=== PATIENT | male | born 1960 | race Caucasian/White ===

== ENCOUNTER 2023-12-30 19:52 | Emergency (ER) | payer BC ==
--- OUTSIDE RECORDS SUMMARY | 2023-12-30 19:55 | XMS REPORT | Continuity of Care Document ---
Author Name Unknown Address [address] [facility] [address] [place] [address] [email or web address] Address [address] [facility] [address] [place] [address] Care Team Providers Care Social Human Services Assistants Name Role Phone Gaudencio Kate Attending Clinician Unavailable Morris Attending Clinician Unavail able Gaudencio Kate Attending Clinician [phone] Gaudencio Kate Admitting Clinician Unavailable Morris Admitting Clinician Unavail able Payers Payer Name Policy Type Policy Number Effective Date Expirati on Date Source [place] [id number] 2017 00:00:00 Problems Condition Name Condition Details Condition Category Status Onset Date Resolution Date Last Treatment Date Treating Clinician Comments Source History of left hip replacemen t History of Left Hip Replacemen t Problem Active - 00:00: 00 [facility] 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 Problem Active -12 00:00: 00 [facility] Joint pain Joint Pain Problem Active 1-06 00:00: 00 [facility] Osteoarthr itis of left hip joint Osteoarthr itis of Left Hip Joint Problem Active 5- 00:00: 00 [facility] Osteoarthr itis of hip Osteoarthr itis of Hip Problem Active 3- 00:00: 00 [facility] 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 Problem Active 3- 00:00: 00 [facility] Pain of left hip joint Pain of Left Hip Joint Problem Active 3- 00:00: 00 [facility] Allergies, Adverse Reactions, Alerts Allergy Name Allergy Type Status Severity Reaction(s) Onset Date Inactive Date Treating Clinician Comments Source No Known Drug Allergie s DA Active U 04-23 00:00: 00 [facility] No Known Drug Allergie s DA Active 5- 00:00: 00 [facility] No Known Allergie s DA Active U - 00:00: 00 [facility] Social History Smoking Status Start Date Stop Date Source Never Smoker [facility] Medications Ordered Medication Name Filled Medication Name Start Date Stop Date Current Medication? Ordering Clinician Indication Dosage Frequency Signature (SIG) Comments Components Source albuterol sulfate HFA 90 mcg/actuati on aerosol inhaler INHALE 1 PUFF BY MOUTH EVERY 4 HOURS NEEDED FOR COUGH albuterol sulfate HFA 90 mcg/actuati on aerosol inhaler INHALE 1 PUFF BY MOUTH EVERY 4 HOURS NEEDED FOR COUGH No albuterol sulfate HFA 90 mcg/actuat ion aerosol inhaler INHALE 1 PUFF BY MOUTH EVERY 4 HOURS NEEDED FOR COUGH [facility] amoxicillin 875 mg-potassiu m clavulanate 125 mg tablet TAKE 1 TABLET BY MOUTH TWICE DAILY FOR 10 DAYS amoxicillin 875 mg-potassiu m clavulanate 125 mg tablet TAKE 1 TABLET BY MOUTH TWICE DAILY FOR 10 DAYS No amoxicilli n 875 mg-potassi um clavulanat e 125 mg tablet TAKE 1 TABLET BY MOUTH TWICE DAILY FOR 10 DAYS [facility] aspirin 81 mg tablet,humberto yed release aspirin 81 mg tablet,humberto yed release No aspirin 81 mg tablet,del ayed release [facility] benzonatate 200 mg capsule TAKE 1 CAPSULE BY MOUTH THREE TIMES DAILY NEEDED FOR COUGH benzonatate 200 mg capsule TAKE 1 CAPSULE BY MOUTH THREE TIMES DAILY NEEDED FOR COUGH No benzonatat e 200 mg capsule TAKE 1 CAPSULE BY MOUTH THREE TIMES DAILY NEEDED FOR COUGH [facility] doxycycline hyclate 100 mg capsule TAKE 1 CAPSULE BY MOUTH TWICE DAILY doxycycline hyclate 100 mg capsule TAKE 1 CAPSULE BY MOUTH TWICE DAILY No doxycyclin e hyclate 100 mg capsule TAKE 1 CAPSULE BY MOUTH TWICE DAILY [facility] hydrocodone 10 mg-acetamin ophen 325 mg tablet TAKE 1 TABLET BY MOUTH EVERY 6 HOURS NEEDED FOR BREAKTHROUG H PAIN hydrocodone 10 mg-acetamin ophen 325 mg tablet TAKE 1 TABLET BY MOUTH EVERY 6 HOURS NEEDED FOR BREAKTHROUG H PAIN No hydrocodon e 10 mg-acetami nophen 325 mg tablet TAKE 1 TABLET BY MOUTH EVERY 6 HOURS NEEDED FOR BREAKTHROU GH PAIN [facility] meloxicam 15 mg tablet TAKE 1 TABLET BY MOUTH DAILY meloxicam 15 mg tablet TAKE 1 TABLET BY MOUTH DAILY No meloxicam 15 mg tablet TAKE 1 TABLET BY MOUTH DAILY [facility] methocarbam ol 500 mg tablet TAKE 1 TABLET BY MOUTH THREE TIMES DAILY NEEDED FOR MUSCLE SPASM methocarbam ol 500 mg tablet TAKE 1 TABLET BY MOUTH THREE TIMES DAILY NEEDED FOR MUSCLE SPASM No methocarba mol 500 mg tablet TAKE 1 TABLET BY MOUTH THREE TIMES DAILY NEEDED FOR MUSCLE SPASM [facility] methylpredn isolone 4 mg tablets in a dose pack FOLLOW PACKAGE DIRECTIONS methylpredn isolone 4 mg tablets in a dose pack FOLLOW PACKAGE DIRECTIONS No methylpred nisolone 4 mg tablets in a dose pack FOLLOW PACKAGE DIRECTIONS [facility] polyethylen e glycol 3350 17 gram oral powder packet polyethylen e glycol 3350 17 gram oral powder packet No polyethyle ne glycol 3350 17 gram oral powder packet [facility] promethazin e-DM 6.25 mg-15 mg/5 mL oral syrup TAKE 5 ML BY MOUTH EVERY 6 HOURS NEEDED FOR COUGH promethazin e-DM 6.25 mg-15 mg/5 mL oral syrup TAKE 5 ML BY MOUTH EVERY 6 HOURS NEEDED FOR COUGH No promethazi ne-DM 6.25 mg-15 mg/5 mL oral syrup TAKE 5 ML BY MOUTH EVERY 6 HOURS NEEDED FOR COUGH [facility] tramadol 50 mg tablet TAKE 1 TABLET BY MOUTH EVERY 4 HOURS NEEDED FOR PAIN tramadol 50 mg tablet TAKE 1 TABLET BY MOUTH EVERY 4 HOURS NEEDED FOR PAIN No tramadol 50 mg tablet TAKE 1 TABLET BY MOUTH EVERY 4 HOURS NEEDED FOR PAIN [facility] albuterol sulfate HFA 90 mcg/actuati on aerosol inhaler INHALE 1 PUFF BY MOUTH EVERY 4 HOURS NEEDED FOR COUGH albuterol sulfate HFA 90 mcg/actuati on aerosol inhaler INHALE 1 PUFF BY MOUTH EVERY 4 HOURS NEEDED FOR COUGH No albuterol sulfate HFA 90 mcg/actuat ion aerosol inhaler INHALE 1 PUFF BY MOUTH EVERY 4 HOURS NEEDED FOR COUGH [facility] amoxicillin 875 mg-potassiu m clavulanate 125 mg tablet TAKE 1 TABLET BY MOUTH TWICE DAILY FOR 10 DAYS amoxicillin 875 mg-potassiu m clavulanate 125 mg tablet TAKE 1 TABLET BY MOUTH TWICE DAILY FOR 10 DAYS No amoxicilli n 875 mg-potassi um clavulanat e 125 mg tablet TAKE 1 TABLET BY MOUTH TWICE DAILY FOR 10 DAYS [facility] aspirin 81 mg tablet,humberto yed release aspirin 81 mg tablet,humberto yed release No aspirin 81 mg tablet,del ayed release [facility] benzonatate 200 mg capsule TAKE 1 CAPSULE BY MOUTH THREE TIMES DAILY NEEDED FOR COUGH benzonatate 200 mg capsule TAKE 1 CAPSULE BY MOUTH THREE TIMES DAILY NEEDED FOR COUGH No benzonatat e 200 mg capsule TAKE 1 CAPSULE BY MOUTH THREE TIMES DAILY NEEDED FOR COUGH [facility] cephalexin 500 mg capsule TAKE 1 TABLET BY MOUTH THREE TIMES DAILY FOR 10 DAYS cephalexin 500 mg capsule TAKE 1 TABLET BY MOUTH THREE TIMES DAILY FOR 10 DAYS No cephalexin 500 mg capsule TAKE 1 TABLET BY MOUTH THREE TIMES DAILY FOR 10 DAYS [facility] doxycycline hyclate 100 mg capsule TAKE 1 CAPSULE BY MOUTH TWICE DAILY doxycycline hyclate 100 mg capsule TAKE 1 CAPSULE BY MOUTH TWICE DAILY No doxycyclin e hyclate 100 mg capsule TAKE 1 CAPSULE BY MOUTH TWICE DAILY [facility] hydrocodone 10 mg-acetamin ophen 325 mg tablet TAKE 1 TABLET BY MOUTH EVERY 6 HOURS NEEDED FOR BREAKTHROUG H PAIN hydrocodone 10 mg-acetamin ophen 325 mg tablet TAKE 1 TABLET BY MOUTH EVERY 6 HOURS NEEDED FOR BREAKTHROUG H PAIN No hydrocodon e 10 mg-acetami nophen 325 mg tablet TAKE 1 TABLET BY MOUTH EVERY 6 HOURS NEEDED FOR BREAKTHROU GH PAIN [facility] meloxicam 15 mg tablet TAKE 1 TABLET BY MOUTH DAILY meloxicam 15 mg tablet TAKE 1 TABLET BY MOUTH DAILY No meloxicam 15 mg tablet TAKE 1 TABLET BY MOUTH DAILY [facility] methocarbam ol 500 mg tablet TAKE 1 TABLET BY MOUTH THREE TIMES DAILY NEEDED FOR MUSCLE SPASM methocarbam ol 500 mg tablet TAKE 1 TABLET BY MOUTH THREE TIMES DAILY NEEDED FOR MUSCLE SPASM No methocarba mol 500 mg tablet TAKE 1 TABLET BY MOUTH THREE TIMES DAILY NEEDED FOR MUSCLE SPASM [facility] methylpredn isolone 4 mg tablets in a dose pack FOLLOW PACKAGE DIRECTIONS methylpredn isolone 4 mg tablets in a dose pack FOLLOW PACKAGE DIRECTIONS No methylpred nisolone 4 mg tablets in a dose pack FOLLOW PACKAGE DIRECTIONS [facility] polyethylen e glycol 3350 17 gram oral powder packet polyethylen e glycol 3350 17 gram oral powder packet No polyethyle ne glycol 3350 17 gram oral powder packet [facility] promethazin e-DM 6.25 mg-15 mg/5 mL oral syrup TAKE 5 ML BY MOUTH EVERY 6 HOURS NEEDED FOR COUGH promethazin e-DM 6.25 mg-15 mg/5 mL oral syrup TAKE 5 ML BY MOUTH EVERY 6 HOURS NEEDED FOR COUGH No promethazi ne-DM 6.25 mg-15 mg/5 mL oral syrup TAKE 5 ML BY MOUTH EVERY 6 HOURS NEEDED FOR COUGH [facility] tramadol 50 mg tablet TAKE 1 TABLET BY MOUTH EVERY 4 HOURS NEEDED FOR PAIN tramadol 50 mg tablet TAKE 1 TABLET BY MOUTH EVERY 4 HOURS NEEDED FOR PAIN No tramadol 50 mg tablet TAKE 1 TABLET BY MOUTH EVERY 4 HOURS NEEDED FOR PAIN [facility] albuterol sulfate HFA 90 mcg/actuati on aerosol inhaler INHALE 1 PUFF BY MOUTH EVERY 4 HOURS NEEDED FOR COUGH albuterol sulfate HFA 90 mcg/actuati on aerosol inhaler INHALE 1 PUFF BY MOUTH EVERY 4 HOURS NEEDED FOR COUGH No albuterol sulfate HFA 90 mcg/actuat ion aerosol inhaler INHALE 1 PUFF BY MOUTH EVERY 4 HOURS NEEDED FOR COUGH [facility] amoxicillin 875 mg-potassiu m clavulanate 125 mg tablet TAKE 1 TABLET BY MOUTH TWICE DAILY FOR 10 DAYS amoxicillin 875 mg-potassiu m clavulanate 125 mg tablet TAKE 1 TABLET BY MOUTH TWICE DAILY FOR 10 DAYS No amoxicilli n 875 mg-potassi um clavulanat e 125 mg tablet TAKE 1 TABLET BY MOUTH TWICE DAILY FOR 10 DAYS [facility] aspirin 81 mg tablet,humberto yed release TAKE 1 TABLET BY MOUTH TWICE DAILY WITH MEALS aspirin 81 mg tablet,humberto yed release TAKE 1 TABLET BY MOUTH TWICE DAILY WITH MEALS No aspirin 81 mg tablet,del ayed release TAKE 1 TABLET BY MOUTH TWICE DAILY WITH MEALS [facility] benzonatate 200 mg capsule TAKE 1 CAPSULE BY MOUTH THREE TIMES DAILY NEEDED FOR COUGH benzonatate 200 mg capsule TAKE 1 CAPSULE BY MOUTH THREE TIMES DAILY NEEDED FOR COUGH No benzonatat e 200 mg capsule TAKE 1 CAPSULE BY MOUTH THREE TIMES DAILY NEEDED FOR COUGH [facility] ceftriaxone 2 gram solution for injection ceftriaxone 2 gram solution for injection No ceftriaxon e 2 gram solution for injection [facility] cephalexin 500 mg capsule TAKE 1 TABLET BY MOUTH THREE TIMES DAILY FOR 10 DAYS cephalexin 500 mg capsule TAKE 1 TABLET BY MOUTH THREE TIMES DAILY FOR 10 DAYS No cephalexin 500 mg capsule TAKE 1 TABLET BY MOUTH THREE TIMES DAILY FOR 10 DAYS [facility] doxycycline hyclate 100 mg capsule TAKE 1 CAPSULE BY MOUTH TWICE DAILY doxycycline hyclate 100 mg capsule TAKE 1 CAPSULE BY MOUTH TWICE DAILY No doxycyclin e hyclate 100 mg capsule TAKE 1 CAPSULE BY MOUTH TWICE DAILY [facility] hydrocodone 10 mg-acetamin ophen 325 mg tablet TAKE 1 TABLET BY MOUTH EVERY 6 HOURS NEEDED FOR BREAKTHROUG H PAIN hydrocodone 10 mg-acetamin ophen 325 mg tablet TAKE 1 TABLET BY MOUTH EVERY 6 HOURS NEEDED FOR BREAKTHROUG H PAIN No hydrocodon e 10 mg-acetami nophen 325 mg tablet TAKE 1 TABLET BY MOUTH EVERY 6 HOURS NEEDED FOR BREAKTHROU GH PAIN [facility] meloxicam 15 mg tablet TAKE 1 TABLET BY MOUTH DAILY meloxicam 15 mg tablet TAKE 1 TABLET BY MOUTH DAILY No meloxicam 15 mg tablet TAKE 1 TABLET BY MOUTH DAILY [facility] methocarbam ol 500 mg tablet TAKE 1 TABLET BY MOUTH THREE TIMES DAILY NEEDED FOR MUSCLE SPASM methocarbam ol 500 mg tablet TAKE 1 TABLET BY MOUTH THREE TIMES DAILY NEEDED FOR MUSCLE SPASM No methocarba mol 500 mg tablet TAKE 1 TABLET BY MOUTH THREE TIMES DAILY NEEDED FOR MUSCLE SPASM [facility] methylpredn isolone 4 mg tablets in a dose pack FOLLOW PACKAGE DIRECTIONS methylpredn isolone 4 mg tablets in a dose pack FOLLOW PACKAGE DIRECTIONS No methylpred nisolone 4 mg tablets in a dose pack FOLLOW PACKAGE DIRECTIONS [facility] polyethylen e glycol 3350 17 gram oral powder packet MIX 1 PACKET IN WATER OR JUICE AT BEDTIME DAILY FOR CONSTIPATIO N PREVENTION polyethylen e glycol 3350 17 gram oral powder packet MIX 1 PACKET IN WATER OR JUICE AT BEDTIME DAILY FOR CONSTIPATIO N PREVENTION No polyethyle ne glycol 3350 17 gram oral powder packet MIX 1 PACKET IN WATER OR JUICE AT BEDTIME DAILY FOR CONSTIPATI ON PREVENTION [facility] promethazin e-DM 6.25 mg-15 mg/5 mL oral syrup TAKE 5 ML BY MOUTH EVERY 6 HOURS NEEDED FOR COUGH promethazin e-DM 6.25 mg-15 mg/5 mL oral syrup TAKE 5 ML BY MOUTH EVERY 6 HOURS NEEDED FOR COUGH No promethazi ne-DM 6.25 mg-15 mg/5 mL oral syrup TAKE 5 ML BY MOUTH EVERY 6 HOURS NEEDED FOR COUGH [facility] tramadol 50 mg tablet TAKE 1 TABLET BY MOUTH EVERY 4 HOURS NEEDED FOR PAIN tramadol 50 mg tablet TAKE 1 TABLET BY MOUTH EVERY 4 HOURS NEEDED FOR PAIN No tramadol 50 mg tablet TAKE 1 TABLET BY MOUTH EVERY 4 HOURS NEEDED FOR PAIN [facility] albuterol sulfate HFA 90 mcg/actuati on aerosol inhaler INHALE 1 PUFF BY MOUTH EVERY 4 HOURS NEEDED FOR COUGH albuterol sulfate HFA 90 mcg/actuati on aerosol inhaler INHALE 1 PUFF BY MOUTH EVERY 4 HOURS NEEDED FOR COUGH No albuterol sulfate HFA 90 mcg/actuat ion aerosol inhaler INHALE 1 PUFF BY MOUTH EVERY 4 HOURS NEEDED FOR COUGH [facility] amoxicillin 875 mg-potassiu m clavulanate 125 mg tablet Take 1 tablet twice a day by oral route as directed for 30 days. amoxicillin 875 mg-potassiu m clavulanate 125 mg tablet Take 1 tablet twice a day by oral route as directed for 30 days. No 1 BID amoxicilli n 875 mg-potassi um clavulanat e 125 mg tablet Take 1 tablet twice a day by oral route as directed for 30 days. [facility] aspirin 81 mg tablet,humberto yed release TAKE 1 TABLET BY MOUTH TWICE DAILY WITH MEALS aspirin 81 mg tablet,humberto yed release TAKE 1 TABLET BY MOUTH TWICE DAILY WITH MEALS No aspirin 81 mg tablet,del ayed release TAKE 1 TABLET BY MOUTH TWICE DAILY WITH MEALS [facility] benzonatate 200 mg capsule TAKE 1 CAPSULE BY MOUTH THREE TIMES DAILY NEEDED FOR COUGH benzonatate 200 mg capsule TAKE 1 CAPSULE BY MOUTH THREE TIMES DAILY NEEDED FOR COUGH No benzonatat e 200 mg capsule TAKE 1 CAPSULE BY MOUTH THREE TIMES DAILY NEEDED FOR COUGH [facility] ceftriaxone 2 gram solution for injection ceftriaxone 2 gram solution for injection No ceftriaxon e 2 gram solution for injection [facility] cephalexin 500 mg capsule TAKE 1 TABLET BY MOUTH THREE TIMES DAILY FOR 10 DAYS cephalexin 500 mg capsule TAKE 1 TABLET BY MOUTH THREE TIMES DAILY FOR 10 DAYS No cephalexin 500 mg capsule TAKE 1 TABLET BY MOUTH THREE TIMES DAILY FOR 10 DAYS [facility] doxycycline hyclate 100 mg capsule TAKE 1 CAPSULE BY MOUTH TWICE DAILY doxycycline hyclate 100 mg capsule TAKE 1 CAPSULE BY MOUTH TWICE DAILY No doxycyclin e hyclate 100 mg capsule TAKE 1 CAPSULE BY MOUTH TWICE DAILY [facility] hydrocodone 10 mg-acetamin ophen 325 mg tablet TAKE 1 TABLET BY MOUTH EVERY 6 HOURS NEEDED FOR BREAKTHROUG H PAIN hydrocodone 10 mg-acetamin ophen 325 mg tablet TAKE 1 TABLET BY MOUTH EVERY 6 HOURS NEEDED FOR BREAKTHROUG H PAIN No hydrocodon e 10 mg-acetami nophen 325 mg tablet TAKE 1 TABLET BY MOUTH EVERY 6 HOURS NEEDED FOR BREAKTHROU GH PAIN [facility] meloxicam 15 mg tablet TAKE 1 TABLET BY MOUTH DAILY meloxicam 15 mg tablet TAKE 1 TABLET BY MOUTH DAILY No meloxicam 15 mg tablet TAKE 1 TABLET BY MOUTH DAILY [facility] methocarbam ol 500 mg tablet TAKE 1 TABLET BY MOUTH THREE TIMES DAILY NEEDED FOR MUSCLE SPASM methocarbam ol 500 mg tablet TAKE 1 TABLET BY MOUTH THREE TIMES DAILY NEEDED FOR MUSCLE SPASM No methocarba mol 500 mg tablet TAKE 1 TABLET BY MOUTH THREE TIMES DAILY NEEDED FOR MUSCLE SPASM [facility] methylpredn isolone 4 mg tablets in a dose pack FOLLOW PACKAGE DIRECTIONS methylpredn isolone 4 mg tablets in a dose pack FOLLOW PACKAGE DIRECTIONS No methylpred nisolone 4 mg tablets in a dose pack FOLLOW PACKAGE DIRECTIONS [facility] polyethylen e glycol 3350 17 gram oral powder packet MIX 1 PACKET IN WATER OR JUICE AT BEDTIME DAILY FOR CONSTIPATIO N PREVENTION polyethylen e glycol 3350 17 gram oral powder packet MIX 1 PACKET IN WATER OR JUICE AT BEDTIME DAILY FOR CONSTIPATIO N PREVENTION No polyethyle ne glycol 3350 17 gram oral powder packet MIX 1 PACKET IN WATER OR JUICE AT BEDTIME DAILY FOR CONSTIPATI ON PREVENTION [facility] promethazin e-DM 6.25 mg-15 mg/5 mL oral syrup TAKE 5 ML BY MOUTH EVERY 6 HOURS NEEDED FOR COUGH promethazin e-DM 6.25 mg-15 mg/5 mL oral syrup TAKE 5 ML BY MOUTH EVERY 6 HOURS NEEDED FOR COUGH No promethazi ne-DM 6.25 mg-15 mg/5 mL oral syrup TAKE 5 ML BY MOUTH EVERY 6 HOURS NEEDED FOR COUGH [facility] tramadol 50 mg tablet TAKE 1 TABLET BY MOUTH EVERY 4 HOURS NEEDED FOR PAIN tramadol 50 mg tablet TAKE 1 TABLET BY MOUTH EVERY 4 HOURS NEEDED FOR PAIN No tramadol 50 mg tablet TAKE 1 TABLET BY MOUTH EVERY 4 HOURS NEEDED FOR PAIN [facility] albuterol sulfate HFA 90 mcg/actuati on aerosol inhaler INHALE 1 PUFF BY MOUTH EVERY 4 HOURS NEEDED FOR COUGH albuterol sulfate HFA 90 mcg/actuati on aerosol inhaler INHALE 1 PUFF BY MOUTH EVERY 4 HOURS NEEDED FOR COUGH No albuterol sulfate HFA 90 mcg/actuat ion aerosol inhaler INHALE 1 PUFF BY MOUTH EVERY 4 HOURS NEEDED FOR COUGH [facility] amoxicillin 875 mg-potassiu m clavulanate 125 mg tablet TAKE 1 TABLET BY MOUTH TWICE DAILY DIRECTED amoxicillin 875 mg-potassiu m clavulanate 125 mg tablet TAKE 1 TABLET BY MOUTH TWICE DAILY DIRECTED No amoxicilli n 875 mg-potassi um clavulanat e 125 mg tablet TAKE 1 TABLET BY MOUTH TWICE DAILY DIRECTED [facility] aspirin 81 mg tablet,humberto yed release TAKE 1 TABLET BY MOUTH TWICE DAILY WITH MEALS aspirin 81 mg tablet,humberto yed release TAKE 1 TABLET BY MOUTH TWICE DAILY WITH MEALS No aspirin 81 mg tablet,del ayed release TAKE 1 TABLET BY MOUTH TWICE DAILY WITH MEALS [facility] benzonatate 200 mg capsule TAKE 1 CAPSULE BY MOUTH THREE TIMES DAILY NEEDED FOR COUGH benzonatate 200 mg capsule TAKE 1 CAPSULE BY MOUTH THREE TIMES DAILY NEEDED FOR COUGH No benzonatat e 200 mg capsule TAKE 1 CAPSULE BY MOUTH THREE TIMES DAILY NEEDED FOR COUGH [facility] ceftriaxone 2 gram solution for injection ceftriaxone 2 gram solution for injection No ceftriaxon e 2 gram solution for injection [facility] cephalexin 500 mg capsule TAKE 1 TABLET BY MOUTH THREE TIMES DAILY FOR 10 DAYS cephalexin 500 mg capsule TAKE 1 TABLET BY MOUTH THREE TIMES DAILY FOR 10 DAYS No cephalexin 500 mg capsule TAKE 1 TABLET BY MOUTH THREE TIMES DAILY FOR 10 DAYS [facility] doxycycline hyclate 100 mg capsule TAKE 1 CAPSULE BY MOUTH TWICE DAILY doxycycline hyclate 100 mg capsule TAKE 1 CAPSULE BY MOUTH TWICE DAILY No doxycyclin e hyclate 100 mg capsule TAKE 1 CAPSULE BY MOUTH TWICE DAILY [facility] hydrocodone 10 mg-acetamin ophen 325 mg tablet TAKE 1 TABLET BY MOUTH EVERY 6 HOURS NEEDED FOR BREAKTHROUG H PAIN hydrocodone 10 mg-acetamin ophen 325 mg tablet TAKE 1 TABLET BY MOUTH EVERY 6 HOURS NEEDED FOR BREAKTHROUG H PAIN No hydrocodon e 10 mg-acetami nophen 325 mg tablet TAKE 1 TABLET BY MOUTH EVERY 6 HOURS NEEDED FOR BREAKTHROU GH PAIN [facility] meloxicam 15 mg tablet TAKE 1 TABLET BY MOUTH DAILY meloxicam 15 mg tablet TAKE 1 TABLET BY MOUTH DAILY No meloxicam 15 mg tablet TAKE 1 TABLET BY MOUTH DAILY [facility] methocarbam ol 500 mg tablet TAKE 1 TABLET BY MOUTH THREE TIMES DAILY NEEDED FOR MUSCLE SPASM methocarbam ol 500 mg tablet TAKE 1 TABLET BY MOUTH THREE TIMES DAILY NEEDED FOR MUSCLE SPASM No methocarba mol 500 mg tablet TAKE 1 TABLET BY MOUTH THREE TIMES DAILY NEEDED FOR MUSCLE SPASM [facility] methylpredn isolone 4 mg tablets in a dose pack FOLLOW PACKAGE DIRECTIONS methylpredn isolone 4 mg tablets in a dose pack FOLLOW PACKAGE DIRECTIONS No methylpred nisolone 4 mg tablets in a dose pack FOLLOW PACKAGE DIRECTIONS [facility] polyethylen e glycol 3350 17 gram oral powder packet MIX 1 PACKET IN WATER OR JUICE AT BEDTIME DAILY FOR CONSTIPATIO N PREVENTION polyethylen e glycol 3350 17 gram oral powder packet MIX 1 PACKET IN WATER OR JUICE AT BEDTIME DAILY FOR CONSTIPATIO N PREVENTION No polyethyle ne glycol 3350 17 gram oral powder packet MIX 1 PACKET IN WATER OR JUICE AT BEDTIME DAILY FOR CONSTIPATI ON PREVENTION [facility] promethazin e-DM 6.25 mg-15 mg/5 mL oral syrup TAKE 5 ML BY MOUTH EVERY 6 HOURS NEEDED FOR COUGH promethazin e-DM 6.25 mg-15 mg/5 mL oral syrup TAKE 5 ML BY MOUTH EVERY 6 HOURS NEEDED FOR COUGH No promethazi ne-DM 6.25 mg-15 mg/5 mL oral syrup TAKE 5 ML BY MOUTH EVERY 6 HOURS NEEDED FOR COUGH [facility] tramadol 50 mg tablet TAKE 1 TABLET BY MOUTH EVERY 4 HOURS NEEDED FOR PAIN tramadol 50 mg tablet TAKE 1 TABLET BY MOUTH EVERY 4 HOURS NEEDED FOR PAIN No tramadol 50 mg tablet TAKE 1 TABLET BY MOUTH EVERY 4 HOURS NEEDED FOR PAIN [facility] aspirin 81 mg tablet,humberto yed release aspirin 81 mg tablet,humberto yed release No aspirin 81 mg tablet,del ayed release [facility] doxycycline hyclate 100 mg capsule TAKE 1 CAPSULE BY MOUTH TWICE DAILY doxycycline hyclate 100 mg capsule TAKE 1 CAPSULE BY MOUTH TWICE DAILY No doxycyclin e hyclate 100 mg capsule TAKE 1 CAPSULE BY MOUTH TWICE DAILY [facility] hydrocodone 10 mg-acetamin ophen 325 mg tablet TAKE 1 TABLET BY MOUTH EVERY 6 HOURS NEEDED FOR BREAKTHROUG H PAIN hydrocodone 10 mg-acetamin ophen 325 mg tablet TAKE 1 TABLET BY MOUTH EVERY 6 HOURS NEEDED FOR BREAKTHROUG H PAIN No hydrocodon e 10 mg-acetami nophen 325 mg tablet TAKE 1 TABLET BY MOUTH EVERY 6 HOURS NEEDED FOR BREAKTHROU GH PAIN [facility] meloxicam 15 mg tablet TAKE 1 TABLET BY MOUTH DAILY meloxicam 15 mg tablet TAKE 1 TABLET BY MOUTH DAILY No meloxicam 15 mg tablet TAKE 1 TABLET BY MOUTH DAILY [facility] methocarbam ol 500 mg tablet TAKE 1 TABLET BY MOUTH THREE TIMES DAILY NEEDED FOR MUSCLE SPASM methocarbam ol 500 mg tablet TAKE 1 TABLET BY MOUTH THREE TIMES DAILY NEEDED FOR MUSCLE SPASM No methocarba mol 500 mg tablet TAKE 1 TABLET BY MOUTH THREE TIMES DAILY NEEDED FOR MUSCLE SPASM [facility] polyethylen e glycol 3350 17 gram oral powder packet polyethylen e glycol 3350 17 gram oral powder packet No polyethyle ne glycol 3350 17 gram oral powder packet [facility] tramadol 50 mg tablet TAKE 1 TABLET BY MOUTH EVERY 4 HOURS NEEDED FOR PAIN tramadol 50 mg tablet TAKE 1 TABLET BY MOUTH EVERY 4 HOURS NEEDED FOR PAIN No tramadol 50 mg tablet TAKE 1 TABLET BY MOUTH EVERY 4 HOURS NEEDED FOR PAIN [facility] aspirin 81 mg tablet,humberto yed release aspirin 81 mg tablet,humberto yed release No aspirin 81 mg tablet,del ayed release [facility] doxycycline hyclate 100 mg capsule TAKE 1 CAPSULE BY MOUTH TWICE DAILY doxycycline hyclate 100 mg capsule TAKE 1 CAPSULE BY MOUTH TWICE DAILY No doxycyclin e hyclate 100 mg capsule TAKE 1 CAPSULE BY MOUTH TWICE DAILY [facility] hydrocodone 10 mg-acetamin ophen 325 mg tablet TAKE 1 TABLET BY MOUTH EVERY 6 HOURS NEEDED FOR BREAKTHROUG H PAIN hydrocodone 10 mg-acetamin ophen 325 mg tablet TAKE 1 TABLET BY MOUTH EVERY 6 HOURS NEEDED FOR BREAKTHROUG H PAIN No hydrocodon e 10 mg-acetami nophen 325 mg tablet TAKE 1 TABLET BY MOUTH EVERY 6 HOURS NEEDED FOR BREAKTHROU GH PAIN [facility] meloxicam 15 mg tablet TAKE 1 TABLET BY MOUTH DAILY meloxicam 15 mg tablet TAKE 1 TABLET BY MOUTH DAILY No meloxicam 15 mg tablet TAKE 1 TABLET BY MOUTH DAILY [facility] methocarbam ol 500 mg tablet TAKE 1 TABLET BY MOUTH THREE TIMES DAILY NEEDED FOR MUSCLE SPASM methocarbam ol 500 mg tablet TAKE 1 TABLET BY MOUTH THREE TIMES DAILY NEEDED FOR MUSCLE SPASM No methocarba mol 500 mg tablet TAKE 1 TABLET BY MOUTH THREE TIMES DAILY NEEDED FOR MUSCLE SPASM [facility] polyethylen e glycol 3350 17 gram oral powder packet polyethylen e glycol 3350 17 gram oral powder packet No polyethyle ne glycol 3350 17 gram oral powder packet [facility] tramadol 50 mg tablet TAKE 1 TABLET BY MOUTH EVERY 4 HOURS NEEDED FOR PAIN tramadol 50 mg tablet TAKE 1 TABLET BY MOUTH EVERY 4 HOURS NEEDED FOR PAIN No tramadol 50 mg tablet TAKE 1 TABLET BY MOUTH EVERY 4 HOURS NEEDED FOR PAIN [facility] Vital Signs Vital Name Observation Time Observation Value Comments S ource Height 2022-12-09 00:00:00 70 [in_i] [facility] BMI (Body Mass Index) 2022-12-09 00:00:00 26.8 kg/m2 [facility] Body Weight 2022-12-09 00:00:00 187 [lb_av] [facility] Height 2022-11-04 00:00:00 70 [in_i] [facility] BMI (Body Mass Index) 2022-11-04 00:00:00 26.8 kg/m2 [facility] Body Weight 2022-11-04 00:00:00 187 [lb_av] [facility] Height 2022-10-14 00:00:00 70 [in_i] [facility] BMI (Body Mass Index) 2022-10-14 00:00:00 26.8 kg/m2 [facility] Body Weight 2022-10-14 00:00:00 187 [lb_av] [facility] Height 2022-09-20 00:00:00 70 [in_i] [facility] BMI (Body Mass Index) 2022-09-20 00:00:00 26.8 kg/m2 [facility] Body Weight 2022-09-20 00:00:00 187 [lb_av] Ling [facility] Height 2022-05-24 00:00:00 70 [in_i] [facility] Procedures Procedure Date / Time Performed Performing Clinician Source XR, hip + pelvis, unilateral, 2 or 3 view 2022-12-09 00:00:00 [facility] [id number] 2022[id number] 00:00:00 [facility] [id number] 2022-09-24 00:00:00 [facility] [id number] 2022-09-24 00:00:00 [facility] [id number] 2022-09-24 00:00:00 [facility] [id number] 2022-09-24 00:00:00 [facility] Drainage of Pelvis Lesion 2022-09-24 00:00:00 [facility] Revision of Left Total Hip Arthroplasty 2022-09-24 00:00:00 [facility] XR, hip + pelvis, unilateral, 2 or 3 view 2022-09-20 00:00:00 [facility] XR, hip + pelvis, unilateral, 2 or 3 view 2022-05-24 00:00:00 [facility] Total Replacement of Left Hip Joint 2022-04-25 00:00:00 [facility] Plan of Care Planned Activity Planned Date Details Comments Source Instructions [facility] Encounters Start Date/Time End Date/Time Encounter Type Admission Type Attending [facility] Facility Care Department Encounter ID Source 2022-02-21 14:30:00 [facility] [id number] [facility] 2023-03-09 00:00:00 2023-03-09 00:00:00 Outpatient ALCIRA_Swathi _Lonnie_ AO AO [id number] [facility] 2023-03-09 00:00:00 2023-03-09 00:00:00 Outpatient FOG_Yfnera _Mufaemily_ AO AO [id number] [facility] 2023-03-09 00:00:00 2023-03-09 00:00:00 Outpatient FOG_Swathi _Lonnie_ AOSM AO [id number] [facility] 2023-01-02 00:00:00 2023-01-02 00:00:00 Outpatient FOG_Swathi _Lonnie_ AO AO [id number] [facility] 2022-12-09 00:00:00 2022-12-09 00:00:00 Gaudencio Kate MD: [address] [place] [address] , Ph. [phone] [facility] [place] [facility] [id number] [facility] 2022-11-05 00:00:00 2022-11-05 00:00:00 Outpatient FOG_Gombera _Mufad_MD AOSM AO [id number] [facility] 2022-11-05 00:00:00 2022-11-05 00:00:00 Outpatient FOG_Gombera _Mufad_MD AOSM AO [id number] [facility] 2022-11-04 00:00:00 2022-11-04 00:00:00 Outpatient FOG_Gombera _Mufad_MD AOSM AO [id number] [facility] 2022-11-04 00:00:00 2022-11-04 00:00:00 Susy Noel MD: [address] [place] [phone] , Ph. [phone] [facility] [place] [facility] [place] [facility] [id number] [facility] 2022-10-14 00:00:00 2022-10-14 00:00:00 Gaudencio Kate MD: [address] [place] [phone] , Ph. [phone] [facility] [place] [facility] [place] [facility] [id number] [facility] 2022-10-11 00:00:00 2022-10-11 00:00:00 Outpatient FOG_Gombera _Mufad_MD AOSM AO [id number] [facility] 2022-10-11 00:00:00 2022-10-11 00:00:00 Outpatient FOG_Gombera _Mufad_MD AOSM AO [id number] [facility] 2022-10-05 00:00:00 2022-10-05 00:00:00 Outpatient FOG_Gombera _Mufad_MD AOSM AO [id number] [facility] 2022-09-24 08:47:00 2022-09-26 16:43:00 Inpatient Gaudencio De La Torre [facility] [id number] [facility] 2022-09-25 00:00:00 2022-09-25 00:00:00 Outpatient FOG_Gombera _Mufad_ AOSM AO [id number] [facility] 2022-09-24 16:14:00 2022-09-24 16:14:00 Outpatient aGudencio Kate [facility]O [id number] 72 [facility] 2022-09-24 00:00:00 2022-09-24 00:00:00 Outpatient FOG_Gombeliel _Mufaemily_ AOSM AO [id number] [facility] 2022-09-24 00:00:00 2022-09-24 00:00:00 Gaudencio Kate MD: [address] [place] [phone] , Ph. [phone] [facility] [place] [facility] [place] [facility] [id number] [facility] 2022-09-23 00:00:00 2022-09-23 00:00:00 Outpatient ALCIRA_Swathi _Damien AOSM AO [id number] [facility] 2022-09-20 18:51:00 2022-09-20 18:51:00 Outpatient Gaudencio Kate [facility] [id number] [facility] 2022-09-20 09:16:00 2022-09-20 09:16:00 Outpatient EL Gaudencio KateTO RADI [id number] [facility] 2022-09-20 00:00:00 2022-09-20 00:00:00 Outpatient FOG_Gombeliel _Wilberfaemily_ AOSM AO [id number] [facility] 2022-09-20 00:00:00 2022-09-20 00:00:00 Gaudencio Kate MD: [address] [place] [phone] , Ph. [phone] [facility] [place] [facility] [place] [facility] [id number] [facility] 2022-09-18 00:00:00 2022-09-18 00:00:00 Outpatient FOG_Gombera _Mufad_MD AOSM AOSM [id number] [facility] 2022-09-18 00:00:00 2022-09-18 00:00:00 Outpatient FOG_Gombera _Mufad_MD AOSM AOSM [id number] [facility] 2022-09-04 00:00:00 2022-09-04 00:00:00 Outpatient FOG_Gombera _Mufad_MD AOSM AOSM [id number] [facility] 2022-08-31 00:00:00 2022-08-31 00:00:00 Outpatient FOG_Gombera _Mufad_MD AOSM AOSM [id number] [facility] 2022-08-01 00:00:00 2022-08-01 00:00:00 Outpatient FOG_Gombera _Mufad_MD AOSM AOSM [id number] [facility] 2022-07-26 00:00:00 2022-07-26 00:00:00 Outpatient FOG_Gombera _Mufad_MD AOSM AOSM [id number] [facility] 2022-06-21 00:00:00 2022-06-21 00:00:00 Outpatient FOG_Gombera _Mufad_MD AOSM AOSM [id number] [facility] 2022-05-29 00:00:00 2022-05-29 00:00:00 Outpatient FOG_Gombera _Mufad_MD AOSM AOSM [id number] [facility] 2022-05-24 00:00:2022-05-24 00:00:00 Outpatient FOG_Swathi _Lonnie_ AOSM AO [id number] [facility] 2022-05-24 00:00:00 2022-05-24 00:00:00 Outpatient Gaudencio Kate AOSM AO [id number] 2022-05-24 00:00:00 2022-05-24 00:00:00 Gaudencio Kate MD: [address] [place] [address] , Ph. [phone] [facility] [place] [facility] [place] [facility] [id number] [facility] 2022-05-17 00:00:00 2022-05-17 00:00:00 Outpatient FOG_Swathi _Lonnie_ AOSM AO [id number] [facility] 2022-05-10 00:00:00 2022-05-10 00:00:00 Outpatient FOG_Swathi _Lonnie_ AOSM AO [id number] [facility] 2022-05-10 00:00:00 2022-05-10 00:00:00 Outpatient Gaudencio Kate AO AO [id number] 2022-05-10 00:00:00 2022-05-10 00:00:00 Gaudencio Kate MD: [address] [place] [address] , Ph. [place] [place] [facility] [place] [facility] [id number] [facility] 2022-04-25 08:26:00 2022-04-26 11:38:00 Inpatient EL Gaudencio Kate [facility] SURG [id number] [facility] 2022-04-26 00:00:00 2022-04-26 00:00:00 Outpatient FOG_Gombera _Mufad_MD AOSM AOSM [id number] [facility] 2022-04-25 08:26:00 2022-04-25 08:25:00 Inpatient EL Gaudencio Kate [facility] [id number] [facility] 2022-04-25 00:00:00 2022-04-25 00:00:00 Outpatient Gaudencio Kate AOSM AOSM [id number] 2022-04-25 00:00:00 2022-04-25 00:00:00 Gaudencio Kate MD: [address] [place] [address] , Ph. [phone] [facility] [place] [facility] [place] [facility] [id number] [facility] 2022-04-23 16:19:00 2022-04-23 16:19:00 Outpatient Gaudencio Kate [facility] [id number] 78 [facility] 2022-04-16 00:00:00 2022-04-16 00:00:00 Outpatient FOG_Gombera _Mufad_ AOSM AOSM [id number] [facility] 2022-04-15 00:00:00 2022-04-15 00:00:00 Outpatient FOG_Gombera _Mufad_MD AOSM AOSM [id number] [facility] 2022-04-12 00:00:00 2022-04-12 00:00:00 Outpatient FOG_Gombera _Mufad_MD AOSM AOSM [id number] [facility] 2022-04-04 12:35:00 2022-04-04 12:35:00 Outpatient FOG_Gombera _Mufad_MD AOSM AOSM [id number] [facility] 2022-03-21 04:04:00 2022-03-21 04:04:00 Outpatient FOG_Gombera _Mufad_MD AOSM AOSM [id number] [facility] 2022-03-13 01:09:00 2022-03-13 01:09:00 Outpatient FOG_Gombera _Mufad_MD AOSM AOSM [id number] [facility] 2022-03-08 04:33:00 2022-03-08 04:33:00 Outpatient FOG_Gombera _Mufad_MD AOSM AOSM [id number] [facility] 2022-02-18 10:43:00 2022-02-18 10:43:00 Outpatient FOG_Gombera _Mufad_MD AOSM AOSM [id number] [facility] 2022-02-13 09:52:00 2022-02-13 09:52:00 Outpatient FOG_Gombera _Mufad_MD AOSM AOSM [id number] [facility] 2022-02-12 08:00:00 2022-02-12 23:59:00 Outpatient Gaudencio De La Torre [facility] LABO [id number] [facility] 2022-02-12 16:45:00 2022-02-12 16:45:00 Outpatient Gaudencio De La Torre [facility] LABO [id number] [facility] 2022-02-12 11:04:00 2022-02-12 11:04:00 Outpatient FOG_Gombera _Mufad_MD AOSM AOSM [id number] [facility] 2022-01-10 12:22:00 2022-01-10 12:22:00 Outpatient Gaudencio De La Torre HCAT[facility] RADI [id number] [facility] Results Test Description Test Time Test Comments Results Resul t Comments Source - XR CHEST 1 V 2022-09-25 16:30:00 [facility] : 1960 Sex: M Patient Name: SHYAM MEAD Unit No: [id number] EXAMS: CPT CODE: [id number] XR CHEST 1 V 77496 PORTABLE CHEST September 25, 2022 1:45 PM COMMENT: COMPARISON: No prior exams available. A right-sided PICC line is been placed with the tip in the SVC. at 1630 Reported and signed by: Adam Alva MD CC: Gaudencio Kate; Susy Noel MD Technologist: LOLA HAMILTON ARRT Transcribed D/ (1629) OskarL [facility] NAME: SHYAM MEAD [address] [facility] PHYS: Susy Brush MD : 1960 AGE: 62 SEX: M [place], [place] [address] LOC: Y.512 A PHONE #: [phone] EXAM DATE: 09/25/2022 STATUS: ADM IN FAX #: [phone] RAD #: D/C DT PAGE 1 Signed Report Patient Name: SHYAM MEAD Unit No: [id number] EXAMS: CPT CODE: [id number] XR CHEST 1 V 14595 (Continued) Orig Print D/T: S: 09/25/2022 (1633) [facility] NAME: SHYAM MEAD [address] [facility] PHYS: Susy Brush MD : 1960 AGE: 62 SEX: M [place], [place] [address] LOC: Y.512 A PHONE #: [phone] EXAM DATE: 09/25/2022 STATUS: ADM IN FAX #: [phone] RAD #: D/C DT PAGE 2 Signed Report - XR PELVIS 1/2 VIEWS 2022-09-25 13:50:00 [facility] 1960 Sex: M Patient Name: SHYAM MEAD Unit No: [id number] EXAMS: CPT CODE: [id number] XR PELVIS 1/2 VIEWS 24681 AP view of the pelvis COMMENT: COMPARISON: No prior exams available. Completed total left hip arthroplasty. Prosthesis appears to be in good position. at 1350 Reported and signed by: Osmin Geiger M.D. CC: Gaudencio Kate Technologist: Christopher Loo(Brandie) Transcribed D/ (1350) [facility]: [facility] [address] [facility] PHYS: Gaudencio Bloom MD : 1960 AGE: 62 SEX: Evan [place], [place] [address] LOC: Y.512 A PHONE #: [phone] EXAM DATE: 09/24/2022 STATUS: ADM IN FAX #: [phone] RAD #: D/C DT PAGE 1 Signed Report Patient Name: SHYAM MEAD Unit No: [id number] EXAMS: CPT CODE: [id number] XR PELVIS 1/2 VIEWS 72377 (Continued) Orig Print D/T: S: 09/25/2022 (1353) [facility] NAME: SHYAM MEAD [address] [facility] PHYS: Gaudencio Bloom MD : 1960 AGE: 62 SEX: M [place], [place] [address] LOC: Y.512 A PHONE #: [phone] EXAM DATE: 09/24/2022 STATUS: ADM IN FAX #: [phone] RAD #: D/C DT PAGE 2 Signed Report HGB [id number] 06:21:00* Test Item Value Reference Range Interpretation Comme nts HEMOGLOBIN (test code = HGB) 10.6 g/dL 12-16 L HEMATOCRIT (test code = HCT) 31.5 % 37-47 L SPECIMEN COMMENT: POD #1Hemoglobin and Hematocrit panel - [id number] 05:00:00* Test Item Value Reference Range Interpretation Comme nts hemoglobin (test code = hemoglobin) 10.6 g/dL 12-16 L hematocrit (test code = hematocrit) 31.5 % 37-47 L performing lab: (test code = performing lab:) [facility] Sports MedicineCOMPREHENSIVE METABOLIC [id number] 12:03:00* Test Item Value Reference Range Interpretation Comme nts SODIUM (test code = NA) 140 mmol/L 136-145 N POTASSIUM (test code = K) 4.2 mmol/L 3.5-5.1 N CHLORIDE (test code = CL) 100.0 mmol/L 98-107 N CARBON DIOXIDE (test code = CO2) 32.4 mmol/L 21-32 H GLUCOSE (test code = GLU) 94 mg/dL 70-110 N BLOOD UREA NITROGEN (test code = BUN) 18 mg/dL 7-18 N GLOMERULAR FILTRATION RATE (test code = GFR) 83.6 >60 The Glomerular Filtration Rate is a calculated parameterbased on serum Creatinine, patient age and sex. GFR valuesless than 60 mL/min/1.73 square meters are indicative ofChronic Kidney Disease. Values less than 15 mL/min/1.73square meters indicate Kidney failure. The calculation forGFR is based on the CKD-EPI (2020) calculation. This formulais race indifferent and is the recommended formula for GFRby the National Kidney Foundation for Adults.The GFR will not calculate if the sex is unknown or if thepatient's age is <18 years. CREATININE (test code = CREAT) 1.01 mg/dL 0.55-1.30 N TOTAL PROTEIN (test code = PROT) 7.5 g/dL 6.4-8.2 N ALBUMIN (test code = ALB) 3.5 g/dL 3.4-5.0 N GLOBULIN (test code = GLOB) 4.0 g/dL 2.2-4.2 N ALBUMIN/GLOBULIN RATIO (test code = A/G) 0.9 0.7-2.0 N CALCIUM (test code = CA) 9.0 mg/dL 8.2-10.1 N BILIRUBIN TOTAL (test code = BILT) 0.50 mg/dL 0.2-1.00 N SGOT/AST (test code = AST) 17.0 U/L 15-37 N SGPT/ALT (test code = ALT) 33.0 U/L 12-78 N ALKALINE PHOSPHATASE TOTAL (test code = ALKP) 75 U/L 46-116 N PROTHROMBIN [id number] 11:56:00* Test Item Value Reference Range Interpretation Comme nts PROTHROMBIN TIME PATIENT (test code = PTP) 14.0 secs 9.7-12.5 H Please note new normal range. INTERNATIONAL NORMAL RATIO (test code = INR) 1.26 <2.0 RECOMMENDED THER APEUTIC RANGE FOR ORAL ANTICOAGULANTTREATMENT: CONDITION INRProphylaxis of venous thrombosis in 2.0 - 3.0 high-risk medical or surgical patientsTreatment of venous thrombosis 2.0 - 3.0Prevention of embolism 2.0 - 3.0Prevention of recurrent embolism, or 3.0 - 4.5 patients with mechanical prosthetic intravascular valves IS PATIENT ON ANTICOAGULANTS ? [facility] been notified if Patient is on Heparin Drip? NOIf Yes, order CBC, OCCULT BLOOD, PT every other day NTHROMBOPLASTIN TIME [id number] 11:56:00* Test Item Value Reference Range Interpretation Comme nts PTT ACTIVATED (test code = APTT) 36.0 secs 26.6-34.6 H Please note new normal range. IS PATIENT ON ANTICOAGULANTS ? [facility] been notified if Patient is on Heparin Drip? NOIf Yes, order CBC, OCCULT BLOOD, PT every other day NCBC W/AUTO DIFF 2022-09-24 11:41:00* Test Item Value Reference Range Interpretation Comme nts WHITE BLOOD CELL (test code = WBC) 10.7 K/mm3 5.7-10.5 H RED BLOOD CELL (test code = RBC) 4.58 M/mm3 4.2-5.4 N HEMOGLOBIN (test code = HGB) 13.1 g/dL 12-16 N HEMATOCRIT (test code = HCT) 39.8 % 37-47 N MEAN CELL VOLUME (test code = MCV) 87 fL 80-98 N MEAN CELL HGB (test code = MCH) 28.6 pg 27-34 N MEAN CELL HGB CONCENTRATION (test code = MCHC) 32.9 g/dL 30.8-34.1 N RED CELL DISTRIBUTION WIDTH (test code = RDW) 12.2 % 11-16 N PLT (test code = PLT) 311 K/mm3 130-400 N MEAN PLATELET VOLUME (test c ode = MPV) 10.0 fL 8.9-12.1 N NEUTROPHIL % (test code = NT%) 64.2 % 45-70 N LYMPHOCYTE % (test code = LY%) 22.5 % 20-40 N MONOCYTE % (test code = MO%) 10.6 % 3-10 H EOSINOPHIL % (test code = EO%) 0.9 % 1-5 L BASOPHIL % (test code = BA%) 0.4 % 0.0-1.1 N NEUTROPHIL # (test code = NT#) 6.84 K/mm3 2.00-7.50 N LYMPHOCYTE # (test code = LY#) 2.40 K/mm3 1.50-4.00 N MONOCYTE # (test code = MO#) 1.13 K/mm3 0.2-0.8 H EOSINOPHIL # (test code = EO#) 0.10 K/mm3 0.04-0.4 N BASOPHIL # (test code = BA#) 0.04 K/mm3 0.02-0.10 N MANUAL DIFF REQUIRED (test c ode = MDIFF) NO MANUAL DIFF NUCLEATED RED BLOOD CELL (te st code = NRBC) 0 % 0-0 N Prothrombin time (PT)2022-09-24 11:30:00* Test Item Value Reference Range Interpretation Comme nts prothrombin time patient (te st code = prothrombin time patient) 14.0 secs 9.7-12.5 H international normal ratio ( test code = international normal ratio) 1.26 <2.0 performing lab: (test code = performing lab:) [facility] [id number] 11:30:00 * Test Item Value Reference Range Interpretation Comme nts PTT activated (test code = P TT activated) 36.0 secs 26.6-34.6 H performing lab: (test code = performing lab:) [facility] 2000 panel - Serum or [id number] 11:30:00* Test Item Value Reference Range Interpretation Comme nts sodium (test code = sodium) 140 mmol/L 136-145 potassium (test code = potassium) 4.2 mmol/L 3.5-5.1 chloride (test code = chloride) 100.0 mmol/L 98-107 carbon dioxide (test code = carbon dioxide) 32.4 mmol/L 21-32 H glucose (test code = glucose) 94 mg/dL 70-110 blood urea nitrogen (test co de = blood urea nitrogen) 18 mg/dL 7-18 glomerular filtration rate ( test code = glomerular filtration rate) 83.6 >60 creatinine (test code = creatinine) 1.01 mg/dL 0.55-1.30 total protein (test code = t otal protein) 7.5 g/dL 6.4-8.2 albumin (test code = albumin) 3.5 g/dL 3.4-5.0 globulin (test code = globulin) 4.0 g/dL 2.2-4.2 albumin/globulin ratio (test code = albumin/globulin ratio) 0.9 0.7-2.0 calcium (test code = calcium) 9.0 mg/dL 8.2-10.1 bilirubin total (test code = bilirubin total) 0.50 mg/dL 0.2-1.00 SGOT/AST (test code = SGOT/AST) 17.0 U/L 15-37 SGPT/ALT (test code = SGPT/ALT) 33.0 U/L 12-78 alkaline phosphatase total ( test code = alkaline phosphatase total) 75 U/L 46-116 performing lab: (test code = performing lab:) [facility] W Auto Differential panel - [id number] 11:30:00* Test Item Value Reference Range Interpretation Comme nts white blood cell (test code = white blood cell) 10.7 K/mm3 5.7-10.5 H red blood cell (test code = red blood cell) 4.58 M/mm3 4.2-5.4 hemoglobin (test code = hemoglobin) 13.1 g/dL 12-16 hematocrit (test code = hematocrit) 39.8 % 37-47 mean cell volume (test code = mean cell volume) 87 fL 80-98 mean cell HGB (test code = m mandy cell HGB) 28.6 pg 27-34 mean cell HGB concentration (test code = mean cell HGB concentration) 32.9 g/dL 30.8-34.1 red cell distribution width (test code = red cell distribution width) 12.2 % 11-16 plt (test code = plt) 311 K/mm3 130-400 mean platelet volume (test c ode = mean platelet volume) 10.0 fL 8.9-12.1 neutrophil % (test code = neutrophil %) 64.2 % 45-70 lymphocyte % (test code = lymphocyte %) 22.5 % 20-40 monocyte % (test code = mono cyte %) 10.6 % 3-10 H eosinophil % (test code = eosinophil %) 0.9 % 1-5 L basophil % (test code = baso julio %) 0.4 % 0.0-1.1 neutrophil # (test code = neutrophil #) 6.84 K/mm3 2.00-7.50 lymphocyte # (test code = lymphocyte #) 2.40 K/mm3 1.50-4.00 monocyte # (test code = mono cyte #) 1.13 K/mm3 0.2-0.8 H eosinophil # (test code = eosinophil #) 0.10 K/mm3 0.04-0.4 basophil # (test code = baso julio #) 0.04 K/mm3 0.02-0.10 manual diff required (test c ode = manual diff required) no manual diff nucleated red blood cell (te st code = nucleated red blood cell) 0 % 0-0 performing lab: (test code = performing lab:) [facility]22-[facility]-24 11:30:00* Test Item Value Reference Range Interpretation Comme nts prothrombin time patient (te st code = prothrombin time patient) 14.0 secs 9.7-12.5 H international normal ratio ( test code = international normal ratio) 1.26 <2.0 performing lab: (test code = performing lab:) [facility] [id number] 11:30:00 * Test Item Value Reference Range Interpretation Comme nts PTT activated (test code = P TT activated) 36.0 secs 26.6-34.6 H performing lab: (test code = performing lab:) [facility]Com[facility] - Serum or [id number] 11:30:00* Test Item Value Reference Range Interpretation Comme nts sodium (test code = sodium) 140 mmol/L 136-145 potassium (test code = potassium) 4.2 mmol/L 3.5-5.1 chloride (test code = chloride) 100.0 mmol/L 98-107 carbon dioxide (test code = carbon dioxide) 32.4 mmol/L 21-32 H glucose (test code = glucose) 94 mg/dL 70-110 blood urea nitrogen (test co de = blood urea nitrogen) 18 mg/dL 7-18 glomerular filtration rate ( test code = glomerular filtration rate) 83.6 >60 creatinine (test code = creatinine) 1.01 mg/dL 0.55-1.30 total protein (test code = t otal protein) 7.5 g/dL 6.4-8.2 albumin (test code = albumin) 3.5 g/dL 3.4-5.0 globulin (test code = globulin) 4.0 g/dL 2.2-4.2 albumin/globulin ratio (test code = albumin/globulin ratio) 0.9 0.7-2.0 calcium (test code = calcium) 9.0 mg/dL 8.2-10.1 bilirubin total (test code = bilirubin total) 0.50 mg/dL 0.2-1.00 SGOT/AST (test code = SGOT/AST) 17.0 U/L 15-37 SGPT/ALT (test code = SGPT/ALT) 33.0 U/L 12-78 alkaline phosphatase total ( test code = alkaline phosphatase total) 75 U/L 46-116 performing lab: (test code = performing lab:) [facility]- XR FLUORO [id number] 16:31:00 [facility] : 1960 Sex: M Patient Name: SHYAM MEAD Unit No: [id number] EXAMS: CPT CODE: [id number] XR FLUORO NDL 94754 Fluoroscopically guided left hip aspiration FINDINGS: After informed consent was obtained a 22-gauge needle is inserted into the left hip under fluoroscopic guidance using sterile technique. 6 mL thin yellow fluid was aspirated. This is sent to the lab for analysis. The patient tolerated the pr ocedure well. 5 seconds of fluoroscopy time was used on this exam. IMPRESSION: Fluoroscopically guided left hip aspiration. at 1631 Reported and signed by: Osmin Geiger M.D. CC: Gaudencio Kate Technologist: RT. Stefan(R) Transcribed D/ (1631) TheodoreJ [facility] NAME: SHYAM MEAD[address] [facility] [address] PHYS: Gaudencio Bloom MD : 1960 AGE: 62 SEX: M [place], [place] [address] LOC: Y.RAD PHONE #: [phone] EXAM DATE: 09/20/2022 STATUS: DEP CLI FAX #: [phone] RAD #: D/C DT PAGE 1 Signed Report Patient Name: SHYAM MEAD Unit No: [id number] EXAMS: CPT CODE: [id number] XR FLUORO NDL 33065 (Continued) Orig Print D/T: S: 09/22/2022 (1634) [facility] NAME: SHYAM MEAD [address] [facility] PHYS: GOYRO - HumbleGaudencio MD : 1960 AGE: 62 SEX: M [place], [place] [address] LOC: Y.RAD PHONE #: [phone] EXAM DATE: 09/20/2022 STATUS: DEP CLI FAX #: [phone] RAD #: D/C DT PAGE [address]/[id number] 21:25:00* Test Item Value Reference Range Interpretation Comme nts SYNOVIAL FLD COLOR (test code = COLSY) YELLOW LT. YELLOW SYNOVIAL FLD APPEARANCE (test code = APPSY) OPAQUE CLEAR SYNOVIAL FLD VOLUME (test code = VOLSY) 1.5 mL SYNOVIAL FLD WBC (test code = WBCSY) 57250.000 /MM3 0-200 H SYNOVIAL FLD RBC (test code = RBCSY) 67740.000 /mm3 0-2 H NOTE: An automated method is now being used to determinesynovial fluid WBC and RBC counts. The differential willstill be performed manually. SYNOVIAL FLD POLY (test code = POLYSY) 96 % 0-25 H SYNOVIAL FLD LYMPHOCYTE (test code = LYMPHSY) 3 % 0-78 N SYNOVIAL FLD MONOCYTE (test code = MONOSY) 1 % 0-71 N SPECIMEN COMMENT: ASPIRATION LEFT HIP DONE BY DR WALDRON [id number] 15:15:00* Test Item Value Reference Range Interpretation Comme nts AFB smear (test code = AFB smear) see below performing lab: (test code = performing lab:) [facility] MedicineFungus identified in Specimen by Fungus stain 2022-09-20 15:15:00* Test Item Value Reference Range Interpretation Comme nts smear fungus (test code = sm ear fungus) see below performing lab: (test code = performing lab:) [facility] MedicineCell count and Differential panel - Synovial [id number] 15:15:00* Test Item Value Reference Range Interpretation Comme nts synovial fld color (test cod e = synovial fld color) yellow lt. yellow synovial fld appearance (germain t code = synovial fld appearance) opaque clear synovial fld volume (test co de = synovial fld volume) 1.5 mL synovial fld WBC (test code = synovial fld WBC) 38162.000 /mm3 0-200 H synovial fld RBC (test code = synovial fld RBC) 86313.000 /mm3 0-2 H synovial fld poly (test code = synovial fld poly) 96 % 0-25 H synovial fld lymphocyte (germain t code = synovial fld lymphocyte) 3 % 0-78 synovial fld monocyte (test code = synovial fld monocyte) 1 % 0-71 performing lab: (test code = performing lab:) [facility] HospitalMicroscopic observation [Identifier] in Specimen by Gram [id number] 15:15:00* Test Item Value Reference Range Interpretation Comme nts gram stain (test code = gram stain) see below performing lab: (test code = performing lab:) [facility] Centergram stain blood [id number] 15:15:00* Test Item Value Reference Range Interpretation Comme nts gram stain blood culture (te st code = gram stain blood culture) see below performing lab: (test code = performing lab:) [facility] Centerblood [id number] 15:15:00* Test Item Value Reference Range Interpretation Comme nts blood culture (test code = b lood culture) see below performing lab: (test code = performing lab:) [facility] CenterAFB [id number] 15:15:00* Test Item Value Reference Range Interpretation Comme nts AFB smear (test code = AFB smear) see below performing lab: (test code = performing lab:) [facility] CenterFungus identified in Specimen by Fungus stain 2022-09-20 15:15:00* Test Item Value Reference Range Interpretation Comme nts smear fungus (test code = sm ear fungus) see below performing lab: (test code = performing lab:) [facility] Centeranaerobic [id number] 15:15:00* Test Item Value Reference Range Interpretation Comme nts anaerobic culture (test code = anaerobic culture) see below performing lab: (test code = performing lab:) [facility] MedicineBacteria identified in Synovial fluid by [id number] 15:15:00* Test Item Value Reference Range Interpretation Comme nts joint fluid culture (test co de = joint fluid culture) see below performing lab: (test code = performing lab:) [facility]- XR PELVIS 1/2 [id number] 07:17:00 [facility] : 1960 Sex: M Patient Name: SHYAM MEAD Unit No: [id number] EXAMS: CPT CODE: [id number] XR PELVIS 1/2 VIEWS 87028 INTRAOPERATIVE LEG LENGTH FILM COMMENT: COMPARISON: No prior exams available. In progress left hip replacement is noted. AP portable left hip COMMENT: The patient is status post joint replacement which is articulating normally. at 0717 Reported and signed by: Adam Alva MD CC: Gaudencio Kate Technologist: Hannah Tinoco (R) Transcribed D/ (0717) [email or web address] [facility] NAME: SHYAM MEAD [address] [facility] [address] PHYS: Gaudencio Bloom MD : 1960 AGE: 61 SEX:M [place], [place] [address] LOC: Y.323 A PHONE #: [phone] EXAM DATE: 04/25/2022 STATUS: ADM IN FAX #: [phone] RAD #: D/C DT PAGE 1 Signed Report Patient Name: SHYAM MEAD Unit No: [id number] EXAMS: CPT CODE: [id number] XR PELVIS 1/2 VIEWS 15084 (Continued) Orig Print D/T: S: 04/26/2022 (07) [facility] NAME: SHYAM MEAD [address] [facility] PHYS: Gaudencio Bloom MD : 1960 AGE: 61 SEX: M [place], [place] [address] LOC: Y.323 A PHONE #: [phone] EXAM DATE: 04/25/2022 STATUS: ADM IN FAX #: [phone] RAD #: D/C DT PAGE 2 Signed Report - XR PELVIS 1/2 [id number] 07:17:00 [facility] : 1960 Sex: M Patient Name: SHYAM MEAD Unit No: [id number] EXAMS: CPT CODE: [id number] XR PELVIS 1/2 VIEWS 00126 INTRAOPERATIVE LEG LENGTH FILM COMMENT: COMPARISON: No prior exams available. In progressleft hip replacement is noted. AP portable left hip COMMENT: The patient is status post joint replacement which is articulating normally. at 0717 Reported and signed by: Adam Alva MD CC: Gaudencio Kate Technologist: SARA SALTER (RT.R) Transcribed D/ (07) Lynette [facility] NAME: SHYAM MEAD [address] PHYS: Gaudencio Bloom MD : 1960 AGE: 61 SEX: M [place], [place] [address] LOC: Y.323 A PHONE #: [phone] EXAM DATE: 04/25/2022 STATUS: ADM IN FAX #: [phone] RAD #: D/C DT PAGE 1 Signed Report Patient Name: SHYAM MEAD Unit No: [id number] EXAMS: CPT CODE: [id number] XR PELVIS 1/2 VIEWS 16695 (Continued) Orig Print D/T: S: 04/26/2022 (0720) [facility] NAME: SHYAM MEAD [address] [facility] [address] PHYS: Gaudencio Bloom MD : 1960 AGE: 61 SEX: M [place], [place] [address] LOC: Y.323 A PHONE #: [phone] EXAM DATE: 04/25/2022 STATUS: ADM IN FAX #: [phone] RAD #:D/C DT PAGE 2 Signed ReportBASIC METABOLIC [id number] 07:11:00* Test Item Value Reference Range Interpretation Comme nts SODIUM (test code = NA) 139 mmol/L 136-145 N POTASSIUM (test code = K) 4.7 mmol/L 3.5-5.1 N CHLORIDE (test code = CL) 105.0 mmol/L 98-107 N CARBON DIOXIDE (test code = CO2) 26.0 mmol/L 21-32 N GLUCOSE (test code = GLU) 139 mg/dL 70-110 H BLOOD UREA NITROGEN (test code = BUN) 22 mg/dL 7-18 H GLOMERULAR FILTRATION RATE (test code = GFR) 68.5 >60 Unit of m easure: mL/min/1.73 [id number] Range:Healthy Adults >90 mL/min/1.73 m2 For Chronic Kidney Disease: Stage II Mild Decrease in GFR 60-90 Stage III Moderate Decrease in GFR 30-59 Stage IV Severe Decrease in GFR 15-29 Stage V Kidney Failure <15 CREATININE (test code = CREAT) 1.09 mg/dL 0.55-1.30 N CALCIUM (test code = CA) 8.3 mg/dL 8.2-10.1 N HGB [id number] 05:49:00* Test Item Value Reference Range Interpretation Comme nts HEMOGLOBIN (test code = HGB) 10.7 g/dL 12-16 L HEMATOCRIT (test code = HCT) 31.5 % 37-47 L SPECIMEN COMMENT: POD #1Hemoglobin and Hematocrit panel - [id number] 04:15:00* Test Item Value Reference Range Interpretation Comme nts hemoglobin (test code = hemoglobin) 10.7 g/dL 12-16 L hematocrit (test code = hematocrit) 31.5 % 37-47 L performing lab: (test code = performing lab:) [facility] MedicineHemoglobin and Hematocrit panel - Blood 2022-04-26 04:15:00* Test Item Value Reference Range Interpretation Comme nts hemoglobin (test code = hemoglobin) 10.7 g/dL 12-16 L hematocrit (test code = hematocrit) 31.5 % 37-47 L performing lab: (test code = performing lab:) [facility] MedicineHemoglobin and Hematocrit panel - Blood 2022-04-26 04:15:00* Test Item Value Reference Range Interpretation Comme nts hemoglobin (test code = hemoglobin) 10.7 g/dL 12-16 L hematocrit (test code = hematocrit) 31.5 % 37-47 L performing lab: (test code = performing lab:) [facility] CenterPROTHROMBIN [id number] 14:34:00* Test Item Value Reference Range Interpretation Comme nts PROTHROMBIN TIME PATIENT (test code = PTP) 11.5 secs 9.7-12.5 N Please note new normal range. INTERNATIONAL NORMAL RATIO (test code = INR) 1.04 <2.0 RECOMMENDED THER APEUTIC RANGE FOR ORAL ANTICOAGULANTTREATMENT: CONDITION INRProphylaxis of venous thrombosis in 2.0 - 3.0 high-risk medical or surgical patientsTreatment of venous thrombosis 2.0 - 3.0Prevention of embolism 2.0 - 3.0Prevention of recurrent embolism, or 3.0 - 4.5 patients with mechanical prosthetic intravascular valves IS PATIENT ON ANTICOAGULANTS ? NHas Lab been notified if Patient is on Heparin Drip? NOIf Yes, order CBC, OCCULT BLOOD, PT every other day NTHROMBOPLASTIN TIME [id number] 14:34:00* Test Item Value Reference Range Interpretation Comme nts PTT ACTIVATED (test code = APTT) 34.4 secs 26.6-34.6 N Please note new normal range. IS PATIENT ON ANTICOAGULANTS ? [facility] Lab been notified if Patient is on Heparin Drip? NOIf Yes, order CBC, OCCULT BLOOD, PT every other day NCBC W/AUTO DIFF 2022-04-23 14:13:00* Test Item Value Reference Range Interpretation Comme nts WHITE BLOOD CELL (test code = WBC) 7.8 K/mm3 5.7-10.5 N RED BLOOD CELL (test code = RBC) 4.82 M/mm3 4.2-5.4 N HEMOGLOBIN (test code = HGB) 14.4 g/dL 12-16 N HEMATOCRIT (test code = HCT) 42.3 % 37-47 N MEAN CELL VOLUME (test code = MCV) 88 fL 80-98 N MEAN CELL HGB (test code = MCH) 29.9 pg 27-34 N MEAN CELL HGB CONCENTRATION (test code = MCHC) 34.0 g/dL 30.8-34.1 N RED CELL DISTRIBUTION WIDTH (test code = RDW) 12.3 % 11-16 N PLT (test code = PLT) 180 K/mm3 130-400 N MEAN PLATELET VOLUME (test c ode = MPV) 12.5 fL 8.9-12.1 H NEUTROPHIL % (test code = NT%) 58.5 % 45-70 N LYMPHOCYTE % (test code = LY%) 28.3 % 20-40 N MONOCYTE % (test code = MO%) 9.8 % 3-10 N EOSINOPHIL % (test code = EO%) 2.6 % 1-5 N BASOPHIL % (test code = BA%) 0.4 % 0.0-1.1 N NEUTROPHIL # (test code = NT#) 4.58 K/mm3 2.00-7.50 N LYMPHOCYTE # (test code = LY#) 2.21 K/mm3 1.50-4.00 N MONOCYTE # (test code = MO#) 0.77 K/mm3 0.2-0.8 N EOSINOPHIL # (test code = EO#) 0.20 K/mm3 0.04-0.4 N BASOPHIL # (test code = BA#) 0.03 K/mm3 0.02-0.10 N MANUAL DIFF REQUIRED (test c ode = MDIFF) NO MANUAL DIFF NUCLEATED RED BLOOD CELL (te st code = NRBC) 0 % 0-0 N COMPREHENSIVE METABOLIC [id number] 13:56:00* Test Item Value Reference Range Interpretation Comme nts SODIUM (test code = NA) 141 mmol/L 136-145 N POTASSIUM (test code = K) 4.2 mmol/L 3.5-5.1 N CHLORIDE (test code = CL) 105.0 mmol/L 98-107 N CARBON DIOXIDE (test code = CO2) 31.0 mmol/L 21-32 N GLUCOSE (test code = GLU) 91 mg/dL 70-110 N BLOOD UREA NITROGEN (test code = BUN) 18 mg/dL 7-18 N GLOMERULAR FILTRATION RATE (test code = GFR) 65.1 >60 Unit of m easure: mL/min/1.73 [id number] Range:Healthy Adults >90 mL/min/1.73 m2 For Chronic Kidney Disease: Stage II Mild Decrease in GFR 60-90 Stage III Moderate Decrease in GFR 30-59 Stage IV Severe Decrease in GFR 15-29 Stage V Kidney Failure <15 CREATININE (test code = CREAT) 1.14 mg/dL 0.55-1.30 N TOTAL PROTEIN (test code = PROT) 7.3 g/dL 6.4-8.2 N ALBUMIN (test code = ALB) 3.9 g/dL 3.4-5.0 N GLOBULIN (test code = GLOB) 3.4 g/dL 2.2-4.2 N ALBUMIN/GLOBULIN RATIO (test code = A/G) 1.2 0.7-2.0 N CALCIUM (test code = CA) 9.1 mg/dL 8.2-10.1 N BILIRUBIN TOTAL (test code = BILT) 0.30 mg/dL 0.2-1.00 N SGOT/AST (test code = AST) 22.0 U/L 15-37 N SGPT/ALT (test code = ALT) 33.0 U/L 12-78 N Please note new normal range. ALKALINE PHOSPHATASE TOTAL (test code = ALKP) 71 U/L 46-116 N Comprehensive metabolic 2000 panel - Serum or [id number] 12:15:00* Test Item Value Reference Range Interpretation Comme nts sodium (test code = sodium) 141 mmol/L 136-145 potassium (test code = potassium) 4.2 mmol/L 3.5-5.1 chloride (test code = chloride) 105.0 mmol/L 98-107 carbon dioxide (test code = carbon dioxide) 31.0 mmol/L 21-32 glucose (test code = glucose) 91 mg/dL 70-110 blood urea nitrogen (test co de = blood urea nitrogen) 18 mg/dL 7-18 glomerular filtration rate ( test code = glomerular filtration rate) 65.1 >60 creatinine (test code = creatinine) 1.14 mg/dL 0.55-1.30 total protein (test code = t otal protein) 7.3 g/dL 6.4-8.2 albumin (test code = albumin) 3.9 g/dL 3.4-5.0 globulin (test code = globulin) 3.4 g/dL 2.2-4.2 albumin/globulin ratio (test code = albumin/globulin ratio) 1.2 0.7-2.0 calcium (test code = calcium) 9.1 mg/dL 8.2-10.1 bilirubin total (test code = bilirubin total) 0.30 mg/dL 0.2-1.00 SGOT/AST (test code = SGOT/AST) 22.0 U/L 15-37 SGPT/ALT (test code = SGPT/ALT) 33.0 U/L 12-78 alkaline phosphatase total ( test code = alkaline phosphatase total) 71 U/L 46-116 performing lab: (test code = performing lab:) [facility] W Auto Differential panel - [id number] 12:15:00* Test Item Value Reference Range Interpretation Comme nts white blood cell (test code = white blood cell) 7.8 K/mm3 5.7-10.5 red blood cell (test code = red blood cell) 4.82 M/mm3 4.2-5.4 hemoglobin (test code = hemoglobin) 14.4 g/dL 12-16 hematocrit (test code = hematocrit) 42.3 % 37-47 mean cell volume (test code = mean cell volume) 88 fL 80-98 mean cell HGB (test code = m mandy cell HGB) 29.9 pg 27-34 mean cell HGB concentration (test code = mean cell HGB concentration) 34.0 g/dL 30.8-34.1 red cell distribution width (test code = red cell distribution width) 12.3 % 11-16 plt (test code = plt) 180 K/mm3 130-400 mean platelet volume (test c ode = mean platelet volume) 12.5 fL 8.9-12.1 H neutrophil % (test code = neutrophil %) 58.5 % 45-70 lymphocyte % (test code = lymphocyte %) 28.3 % 20-40 monocyte % (test code = mono cyte %) 9.8 % 3-10 eosinophil % (test code = eosinophil %) 2.6 % 1-5 basophil % (test code = baso julio %) 0.4 % 0.0-1.1 neutrophil # (test code = neutrophil #) 4.58 K/mm3 2.00-7.50 lymphocyte # (test code = lymphocyte #) 2.21 K/mm3 1.50-4.00 monocyte # (test code = mono cyte #) 0.77 K/mm3 0.2-0.8 eosinophil # (test code = eosinophil #) 0.20 K/mm3 0.04-0.4 basophil # (test code = baso julio #) 0.03 K/mm3 0.02-0.10 manual diff required (test c ode = manual diff required) no manual diff nucleated red blood cell (te st code = nucleated red blood cell) 0 % 0-0 performing lab: (test code = performing lab:) [facility] MedicineProthrombin time (PT)2022-04-23 12:15:00* Test Item Value Reference Range Interpretation Comme nts prothrombin time patient (te st code = prothrombin time patient) 11.5 secs 9.7-12.5 international normal ratio ( test code = international normal ratio) 1.04 <2.0 performing lab: (test code = performing lab:) [facility] Medicinethromboplastin time [id number] 12:15:00 * Test Item Value Reference Range Interpretation Comme nts PTT activated (test code = P TT activated) 34.4 secs 26.6-34.6 performing lab: (test code = performing lab:) [facility] MedicineMethicillin resistant Staphylococcus aureus [Presence] in Specimen by Organism specific [id number] 12:15:00* Test Item Value Reference Range Interpretation Comme nts MRSA surveillance screen (te st code = MRSA surveillance screen) see below performing lab: (test code = performing lab:) [facility] Centermssa PCR surveillance [id number] 12:15:00 * Test Item Value Reference Range Interpretation Comme nts mssa PCR surveillance screen (test code = mssa PCR surveillance screen) see below performing lab: (test code = performing lab:) [facility] CenterComprehensive metabolic 2000 panel - Serum or [id number] 12:15:00* Test Item Value Reference Range Interpretation Comme nts sodium (test code = sodium) 141 mmol/L 136-145 potassium (test code = potassium) 4.2 mmol/L 3.5-5.1 chloride (test code = chloride) 105.0 mmol/L 98-107 carbon dioxide (test code = carbon dioxide) 31.0 mmol/L 21-32 glucose (test code = glucose) 91 mg/dL 70-110 blood urea nitrogen (test co de = blood urea nitrogen) 18 mg/dL 7-18 glomerular filtration rate ( test code = glomerular filtration rate) 65.1 >60 creatinine (test code = creatinine) 1.14 mg/dL 0.55-1.30 total protein (test code = t otal protein) 7.3 g/dL 6.4-8.2 albumin (test code = albumin) 3.9 g/dL 3.4-5.0 globulin (test code = globulin) 3.4 g/dL 2.2-4.2 albumin/globulin ratio (test code = albumin/globulin ratio) 1.2 0.7-2.0 calcium (test code = calcium) 9.1 mg/dL 8.2-10.1 bilirubin total (test code = bilirubin total) 0.30 mg/dL 0.2-1.00 SGOT/AST (test code = SGOT/AST) 22.0 U/L 15-37 SGPT/ALT (test code = SGPT/ALT) 33.0 U/L 12-78 alkaline phosphatase total ( test code = alkaline phosphatase total) 71 U/L 46-116 performing lab: (test code = performing lab:) [facility] CenterCBC W Auto Differential panel - [id number] 12:15:00* Test Item Value Reference Range Interpretation Comme nts white blood cell (test code = white blood cell) 7.8 K/mm3 5.7-10.5 red blood cell (test code = red blood cell) 4.82 M/mm3 4.2-5.4 hemoglobin (test code = hemoglobin) 14.4 g/dL 12-16 hematocrit (test code = hematocrit) 42.3 % 37-47 mean cell volume (test code = mean cell volume) 88 fL 80-98 mean cell HGB (test code = m mandy cell HGB) 29.9 pg 27-34 mean cell HGB concentration (test code = mean cell HGB concentration) 34.0 g/dL 30.8-34.1 red cell distribution width (test code = red cell distribution width) 12.3 % 11-16 plt (test code = plt) 180 K/mm3 130-400 mean platelet volume (test c ode = mean platelet volume) 12.5 fL 8.9-12.1 H neutrophil % (test code = neutrophil %) 58.5 % 45-70 lymphocyte % (test code = lymphocyte %) 28.3 % 20-40 monocyte % (test code = mono cyte %) 9.8 % 3-10 eosinophil % (test code = eosinophil %) 2.6 % 1-5 basophil % (test code = baso julio %) 0.4 % 0.0-1.1 neutrophil # (test code = neutrophil #) 4.58 K/mm3 2.00-7.50 lymphocyte # (test code = lymphocyte #) 2.21 K/mm3 1.50-4.00 monocyte # (test code = mono cyte #) 0.77 K/mm3 0.2-0.8 eosinophil # (test code = eosinophil #) 0.20 K/mm3 0.04-0.4 basophil # (test code = baso julio #) 0.03 K/mm3 0.02-0.10 manual diff required (test c ode = manual diff required) no manual diff nucleated red blood cell (te st code = nucleated red blood cell) 0 % 0-0 performing lab: (test code = performing lab:) [facility] MedicineProthrombin time (PT)2022-04-23 12:15:00* Test Item Value Reference Range Interpretation Comme nts prothrombin time patient (te st code = prothrombin time patient) 11.5 secs 9.7-12.5 international normal ratio ( test code = international normal ratio) 1.04 <2.0 performing lab: (test code = performing lab:) [facility] Centerthromboplastin time [id number] 12:15:00 * Test Item Value Reference Range Interpretation Comme nts PTT activated (test code = P TT activated) 34.4 secs 26.6-34.6 performing lab: (test code = performing lab:) [facility] CenterMethicillin resistant Staphylococcus aureus [Presence] in Specimen by Organism specific [id number] 12:15:00* Test Item Value Reference Range Interpretation Comme nts MRSA surveillance screen (te st code = MRSA surveillance screen) see below performing lab: (test code = performing lab:) [facility] Cent[facility]ssa PCR surveillance [id number] 12:15:00 * Test Item Value Reference Range Interpretation Comme nts mssa PCR surveillance screen (test code = mssa PCR surveillance screen) see below performing lab: (test code = performing lab:) [facility] CenterComprehensive metabolic 2000 panel - Serum or [id number] 12:15:00* Test Item Value Reference Range Interpretation Comme nts sodium (test code = sodium) 141 mmol/L 136-145 potassium (test code = potassium) 4.2 mmol/L 3.5-5.1 chloride (test code = chloride) 105.0 mmol/L 98-107 carbon dioxide (test code = carbon dioxide) 31.0 mmol/L 21-32 glucose (test code = glucose) 91 mg/dL 70-110 blood urea nitrogen (test co de = blood urea nitrogen) 18 mg/dL 7-18 glomerular filtration rate ( test code = glomerular filtration rate) 65.1 >60 creatinine (test code = creatinine) 1.14 mg/dL 0.55-1.30 total protein (test code = t otal protein) 7.3 g/dL 6.4-8.2 albumin (test code = albumin) 3.9 g/dL 3.4-5.0 globulin (test code = globulin) 3.4 g/dL 2.2-4.2 albumin/globulin ratio (test code = albumin/globulin ratio) 1.2 0.7-2.0 calcium (test code = calcium) 9.1 mg/dL 8.2-10.1 bilirubin total (test code = bilirubin total) 0.30 mg/dL 0.2-1.00 SGOT/AST (test code = SGOT/AST) 22.0 U/L 15-37 SGPT/ALT (test code = SGPT/ALT) 33.0 U/L 12-78 alkaline phosphatase total ( test code = alkaline phosphatase total) 71 U/L 46-116 performing lab: (test code = performing lab:) [facility] W Auto Differential panel - [id number] 12:15:00* Test Item Value Reference Range Interpretation Comme nts white blood cell (test code = white blood cell) 7.8 K/mm3 5.7-10.5 red blood cell (test code = red blood cell) 4.82 M/mm3 4.2-5.4 hemoglobin (test code = hemoglobin) 14.4 g/dL 12-16 hematocrit (test code = hematocrit) 42.3 % 37-47 mean cell volume (test code = mean cell volume) 88 fL 80-98 mean cell HGB (test code = m mandy cell HGB) 29.9 pg 27-34 mean cell HGB concentration (test code = mean cell HGB concentration) 34.0 g/dL 30.8-34.1 red cell distribution width (test code = red cell distribution width) 12.3 % 11-16 plt (test code = plt) 180 K/mm3 130-400 mean platelet volume (test c ode = mean platelet volume) 12.5 fL 8.9-12.1 H neutrophil % (test code = neutrophil %) 58.5 % 45-70 lymphocyte % (test code = lymphocyte %) 28.3 % 20-40 monocyte % (test code = mono cyte %) 9.8 % 3-10 eosinophil % (test code = eosinophil %) 2.6 % 1-5 basophil % (test code = baso julio %) 0.4 % 0.0-1.1 neutrophil # (test code = neutrophil #) 4.58 K/mm3 2.00-7.50 lymphocyte # (test code = lymphocyte #) 2.21 K/mm3 1.50-4.00 monocyte # (test code = mono cyte #) 0.77 K/mm3 0.2-0.8 eosinophil # (test code = eosinophil #) 0.20 K/mm3 0.04-0.4 basophil # (test code = baso julio #) 0.03 K/mm3 0.02-0.10 manual diff required (test c ode = manual diff required) no manual diff nucleated red blood cell (te st code = nucleated red blood cell) 0 % 0-0 performing lab: (test code = performing lab:) [facility]2022-[facility]-23 12:15:00* Test Item Value Reference Range Interpretation Comme nts prothrombin time patient (te st code = prothrombin time patient) 11.5 secs 9.7-12.5 international normal ratio ( test code = international normal ratio) 1.04 <2.0 performing lab: (test code = performing lab:) [facility] [id number] 12:15:00 * Test Item Value Reference Range Interpretation Comme nts PTT activated (test code = P TT activated) 34.4 secs 26.6-34.6 performing lab: (test code = performing lab:) [facility] CenterMethicillin resistant Staphylococcus aureus [Presence] in Specimen by Organism specific smpljhc5448-61-37 12:15:00* Test Item Value Reference Range Interpretation Comme nts MRSA surveillance screen (te st code = MRSA surveillance screen) see below performing lab: (test code = performing lab:) [facility]ermssa PCR surveillance [id number] 12:15:00 * Test Item Value Reference Range Interpretation Comme nts mssa PCR surveillance screen (test code = mssa PCR surveillance screen) see below performing lab: (test code = performing lab:) [facility] Coronavirus 2019 Ubfusrk0328-22-97 19:48:00* Test Item Value Reference Range Interpretation Comme nts Novel Coronavirus 2019 Inhouse (test code = COVNONPUI) Positive Negative A Critical resul t called to TREMAINE BERRY,MTby [id number] at 19402/13/22Nurse read back result and tech confirmed it's correct? YReported to Renetta.by RANDALLCD, on 02/13/22 at 1947.Result faxed to the doctor's office.Positive results are indicative of the presence reEHSU-AbN-0 RNA, clinical correlation with patient historyand other diagnostic information is necessary to determinepatient infection status. Positive results do not rule outbacterial infection or co-infection with other viruses. Negative results do not preclude SARS-CoV-2 infection andshould not be used as the sole basis for patient managementdecisions. Negative results must be combined with otherclinical observations, patient history, and epidemiologicalinformation . Detection of SARS-CoV-2 RNA may be affected bysample collection methods, storage conditions, and/or stageof infection. Viral RNA mutations, vaccinations, antiviraltherapeutics, antibiotics, chemotherapeutic orimmunosuppressant drugs have not been evaluated for effectson detection. Results are for the identification of SARS-CoV-2 RNA usingreal-time (RT) polymerase chain reaction (PCR) technologyfor the qualitative detection of nucleic acids from ggvYVSA-RpS-9 virus and diagnosis of SARS-CoV-2 virusinfection. It is an Emergency Use Authorization (EUA) testauthorized by the U.S. FDA. Novel Coronavirus 2019 [id number] 19:45:00* Test Item Value Reference Range Interpretation Comme nts Novel Coronavirus 2019 Inhouse (test code = COVNONPUI) Positive Negative A [facility]ul [facility] [id number] at 1945 02/13/22Nurse read back result and tech confirmed it's correct? YPositive results are indicative of the presence kgNTSK-AbS-1 RNA, clinical correlation with patient historyand other diagnostic information is necessary to determinepatient infection status. Positive results do not rule outbacterial infection or co-infection with other viruses. Negative results do not preclude SARS-CoV-2 infection andshould not be used as the sole basis for patient managementdecisions. Negative results must be combined with otherclinical observations, patient history, and epidemiologicalinformation . Detection of SARS-CoV-2 RNA may be affected bysample collection methods, storage conditions, and/or stageof infection. Viral RNA mutations, vaccinations, antiviraltherapeutics, antibiotics, chemotherapeutic orimmunosuppressant drugs have not been evaluated for effectson detection. Results are for the identification of SARS-CoV-2 RNA usingreal-time (RT) polymerase chain reaction (PCR) technologyfor the qualitative detection of nucleic acids from cgiPDAJ-JsM-5 virus and diagnosis of SARS-CoV-2 virusinfection. It is an Emergency Use Authorization (EUA) testauthorized by the U.S. FDA. COMPREHENSIVE METABOLIC [id number] 14:59:00* Test Item Value Reference Range Interpretation Comme nts SODIUM (test code = NA) 143 mmol/L 136-145 N POTASSIUM (test code = K) 4.6 mmol/L 3.5-5.1 N CHLORIDE (test code = CL) 105.0 mmol/L 98-107 N CARBON DIOXIDE (test code = CO2) 31.6 mmol/L 21-32 N GLUCOSE (test code = GLU) 94 mg/dL 70-110 N BLOOD UREA NITROGEN (test code = BUN) 15 mg/dL 7-18 N GLOMERULAR FILTRATION RATE (test code = GFR) 67.1 >60 Unit of m easure: mL/min/1.73 i4Taczdmpim Range:Healthy Adults >90 mL/min/1.73 m2 For Chronic Kidney Disease: Stage II Mild Decrease in GFR 60-90 Stage III Moderate Decrease in GFR 30-59 Stage IV Severe Decrease in GFR 15-29 Stage V Kidney Failure <15 CREATININE (test code = CREAT) 1.11 mg/dL 0.55-1.30 N TOTAL PROTEIN (test code = PROT) 7.1 g/dL 6.4-8.2 N ALBUMIN (test code = ALB) 3.9 g/dL 3.4-5.0 N GLOBULIN (test code = GLOB) 3.2 g/dL 2.2-4.2 N ALBUMIN/GLOBULIN RATIO (test code = A/G) 1.2 0.7-2.0 N CALCIUM (test code = CA) 9.0 mg/dL 8.2-10.1 N BILIRUBIN TOTAL (test code = BILT) 0.60 mg/dL 0.2-1.00 N SGOT/AST (test code = AST) 20.0 U/L 15-37 N SGPT/ALT (test code = ALT) 29.0 U/L 12-78 N Please note new normal range. ALKALINE PHOSPHATASE TOTAL (test code = ALKP) 65 U/L 46-116 N PROTHROMBIN [id number] 14:57:00* Test Item Value Reference Range Interpretation Comme nts PROTHROMBIN TIME PATIENT (test code = PTP) 12.0 secs 9.7-12.5 N Please note new normal range. INTERNATIONAL NORMAL RATIO (test code = INR) 1.08 <2.0 RECOMMENDED THER APEUTIC RANGE FOR ORAL ANTICOAGULANTTREATMENT: CONDITION INRProphylaxis of venous thrombosis in 2.0 - 3.0 high-risk medical or surgical patientsTreatment of venous thrombosis 2.0 - 3.0Prevention of embolism 2.0 - 3.0Prevention of recurrent embolism, or 3.0 - 4.5 patients with mechanical prosthetic intravascular valves IS PATIENT ON ANTICOAGULANTS ? ARas Lab been notified if Patient is on Heparin Drip? NOIf Yes, order CBC, OCCULT BLOOD, PT every other day NTHROMBOPLASTIN TIME [id number] 14:57:00* Test Item Value Reference Range Interpretation Comme nts PTT ACTIVATED (test code = APTT) 34.1 secs 26.6-34.6 N Please note new normal range. IS PATIENT ON ANTICOAGULANTS ? ARas Lab been notified if Patient is on Heparin Drip? NOIf Yes, order CBC, OCCULT BLOOD, PT every other day NCBC W/AUTO DIFF 2022-02-12 14:34:00* Test Item Value Reference Range Interpretation Comme nts WHITE BLOOD CELL (test code = WBC) 5.8 K/mm3 5.7-10.5 N RED BLOOD CELL (test code = RBC) 4.67 M/mm3 4.2-5.4 N HEMOGLOBIN (test code = HGB) 13.6 g/dL 12-16 N HEMATOCRIT (test code = HCT) 41.5 % 37-47 N MEAN CELL VOLUME (test code = MCV) 89 fL 80-98 N MEAN CELL HGB (test code = MCH) 29.1 pg 27-34 N MEAN CELL HGB CONCENTRATION (test code = MCHC) 32.8 g/dL 30.8-34.1 N RED CELL DISTRIBUTION WIDTH (test code = RDW) 11.9 % 11-16 N PLT (test code = PLT) 202 K/mm3 130-400 N MEAN PLATELET VOLUME (test c ode = MPV) 11.3 fL 8.9-12.1 N NEUTROPHIL % (test code = NT%) 53.4 % 45-70 N LYMPHOCYTE % (test code = LY%) 34.9 % 20-40 N MONOCYTE % (test code = MO%) 8.8 % 3-10 N EOSINOPHIL % (test code = EO%) 2.1 % 1-5 N BASOPHIL % (test code = BA%) 0.3 % 0.0-1.1 N NEUTROPHIL # (test code = NT#) 3.11 K/mm3 2.00-7.50 N LYMPHOCYTE # (test code = LY#) 2.03 K/mm3 1.50-4.00 N MONOCYTE # (test code = MO#) 0.51 K/mm3 0.2-0.8 N EOSINOPHIL # (test code = EO#) 0.12 K/mm3 0.04-0.4 N BASOPHIL # (test code = BA#) 0.02 K/mm3 0.02-0.10 N MANUAL DIFF REQUIRED (test c ode = MDIFF) NO MANUAL DIFF NUCLEATED RED BLOOD CELL (te st code = NRBC) 0 % 0-0 N - XR FLUORO HTA2023-20-92 07:05:00 [facility]ITAL[facility]: [facility]AM [facility]AD : 1960 Sex: M Patient Name: SHYAM MEAD Unit No: [id number] EXAMS: CPT CODE: [id number] XR FLUORO NDL 93905 FLUOROSCOPICALLY GUIDED INJECTION OF THE LEFT HIP WITH MARCAINE COMMENT: COMPARISON: No prior exams available. After informed consent was obtained a needle was placed in the hip joint with fluoroscopic guidance. Its position was confirmed by injecting Isovue 300 and obtaining an AP radiograph. 7 seconds of f luoroscopy time was utilized. Subsequently 5mL of 0.75 percent Marcaine was injected. No immediate complications were encountered. at 0705 Reported and signed by: Adam Alva MD CC: Gaudencio Kate Technologist: RT. Stefan(R) Transcribed D/ (704) Lynette [facility] NAME: SHYAM MEAD [address] [place] [address] PHYS: Gaudencio Bloom MD : 1960 AGE: 61 SEX: M [place], [place] [address] LOC: Y.RAD PHONE #: [phone] EXAM DATE: 01/10/2022 STATUS: DEP CLI FAX #: [phone] RAD #: D/C DT PAGE 1 Signed Report Patient Name: SHYAM MEAD Unit No: [id number] EXAMS: CPT CODE: [id number] XR FLUORO NDL 08871 (Continued) Orig Print D/T: S: 01/11/2022 (707) [facility] NAME: SHYAM MEAD [address] [place] [address] PHYS: Gaudencio Bloom MD : 1960 AGE: 61 SEX: M [place], [place] [address] LOC: Y.RAD PHONE #: [phone] EXAMDATE: 01/10/2022 STATUS: DEP CLI FAX #: [phone] RAD #: D/C DT PAGE 2 Signed Report Notes Date/Time Note Provider Source 2022-10-16 13:14:00 [id number] QLw5u5bqOfaa/MT9rxgHmMhrGq69379-40-22H34:14:00 [facility]Discharge SummaryREPORT#:[id number] REPORT STATUS: SignedDATE:10/16/22 TIME: 1314 PATIENT: SHYAM MEAD UNIT #: [id number]#: [id number] ROOM/BED: [facility]-ADOB: [birth year] AGE: 62 SEX: M ATTEND: Gaudencio Kate MDADM AUTHOR: Gaudencio Kate MD * ALL edits or amendments must be made on the electronic/computer document * General InformationProblem List/A P: 1. LEFT KENDRA INFECTION 2. Group B streptococcal infection Discharge date: 09/26/22Discharge diagnosis:sameHospital course: Discharge Diagnosis: infected hip left Arthroplasty Procedure: I D left hip Arthroplasty Hospital Course and Findings The patient underwent the procedure without incident. Findings were significantfor infected arthroplasty. The patient was hemodynamically and medically monitored during the postoperative period. Anticoagulation was instituted for postoperative DVT prophylaxis. The patient was progressively able to tolerate PO pain medications and the appropriate diet. Physical therapy was instituted, with a progressive ability to ambulate and perform exercises. The patient was eventually deemed stable and safe for discharge. At discharge, the patient was comfortable, with a controlled pain level. There were no chest or abdominal symptoms present. Discharge physical examination demonstrated stable vital signs and no acute distress. The patient had an intact wound with no significant drainage, and no calf tenderness and a negativeHoman s sign bilaterally. There were no neurologic or vascular deficits or changes from the preoperative state. Disposition: Discharged to home Discharge Condition: Stable Instructions: Instruction sheet given to patient Activity: Ambulate with assistance, with weight-bearing as instructed in the hospital. Weight bearing limitations were reviewed with the patient during the hospitalization. The patient was supplied with a brace to help support postoperative knee instability until dynamic stabilizers strengthen during recovery. The patient was supplied with a walker to help impaired ambulation during surgical recovery. ID per Dr. Noel Diet: As per preoperatively Prescriptions 1. Pain Medications: As per discharge prescription, with progressive weaning as pain decreases 2. Anticoagulation: As per discharge prescription, or PreOp anticoagulant, as discussed with patient 3. Physical Therapy: Will undergo PT as needed for gait training with the appropriate instructed weight-bearing precautions, mobilization, kdcqi-tw-npepjj, and strengthening. Plan for timing of institution of PT reviewed with the patient. 4. IV abx per Dr. NoelFollow-up Appointment: Patient instructed to arrange appointment for an office visit in 2 weeks Med Rec Med RecDischarge meds:Start taking the following new medications:ASPIRIN EC (ECOTRIN) 81 MG TAB.EC 81 MILLIGRAM ORAL TWICE DAILY WITH MEALS. Qty = 60 No Refills HYDROcodone/APAP (HYDROcodone/APAP 10/325) 10 MG-325 MG TAB 1 TABLET ORAL EVERY SIX HOURS NEEDED as needed for prn break through pain Qty = 28 No Refills Instructions: one tab every 6 hours only for breakthrough pain POLYETHYLENE GLYCOL 3350 (MIRALAX) 17 GRAM POWDER 17 GRAM ORAL BEDTIME. Days = 30 Qty = 30 No Refills Instructions: please take daily for constipation prevention MELOXICAM (MOBIC) 15 MG TAB 15 MILLIGRAM ORAL DAILY. Qty = 30 No Refills LACTOBACILLUS ACIDOPHILUS (PROBIOTIC ACIDOPHILUS) 1 CAP CAP 1 CAPSULE ORAL DAILY. Qty = 30 Refills = 6 Instructions: take as bottle directs for 6 weeks after surgery methocarbamoL (ROBAXIN) 500 MG TAB 500 MILLIGRAM ORAL THREE TIMES DAILY NEEDED. as needed for muscle spasm Qty = 28 No Refills traMADol (ULTRAM) 50 MG TAB 50 MILLIGRAM ORAL EVERY 4 HOURS NEEDED. as needed for pain Days = 7 Qty = 28 No Refills Discharge Instructions PCP)( Discharge to: Home/Self Care Discharge InstructionsAdditional Discharge Routines: Attending Follow-Up)( Diet: Regular)( Activity: As Tolerated, Crutches/Walker, Do not Submerge Incision, No Driving Follow-up AppointmentsAttending Physician: Attending Physician: Gaudencio Kate MD Attending physician follow up timeframe: In 2-3 weeks Special instructions:CALL OFFICE TO SCHEDULE APPOINTMENTConsulting provider 1: Provider 1: Susy oNel MD Specialty: INFECTIOUS DISEASE Consult follow up timeframe: In 2-3 weeks Special instructions:CALL OFFICE TO SCHEDULE APPOINTMENT at [address] [facility] #:[id number] OF REPORT DSDischarge izuxjmh7539-43-22V14:14:00Y.[id number] ailable for patient oqfeSTGCMRTCPPGLMC8071-28-46Z27:17:27 [facility] 2022-09-26 10:38:00 [id number] 31EAbQ1vLz9DOLHOAz0Ot8ndHX2Kg 75p+qT+Z4Er59r1e9woyA44AgB71130-11-40R51:38:00 [facility] ([facility])Infectious Dis. Progress NoteREPORT#:[id number] REPORT STATUS: SignedDATE:09/26/22 TIME: 1038 PATIENT: SHYAM MEAD UNIT #: [id number]#: [id number] [facility] AGE: 62 SEX: M ATTEND: Gaudencio Kate MDADM AUTHOR: Susy Noel MD * ALL edits or amendments must be made on the electronic/computer document * SubjectiveChief complaint:Left KENDRA infectionHPI:A 62 y/o male s/p left KENDRA in April 2022 who now presents with increasing pain.Pt had aspiration on 09/20/21 showing 22,000 wbcs, 97 % polys and cxs grew GBS. Ptadmitted today for I D and poly liner exchange.Patient reports:Yes: pain controlled. No: complaints. Review of SystemsConstitutional:Denies: chills, fever. Objective GeneralVS/I O:Vital Signs Date Temp Pulse Resp B/P B/P Mean Pulse Ox FiO2 09/25-09/26 35.6-37.0 66-74 16-18 124-156/63-78 0.0-104 95-98 Last Documented: Result Date Time Pulse Ox 95 09/26 0730 B/P 134/76 09/26 0730 B/P Mean 95.2 09/26 0730 O2 Delivery Room air 09/26 0730 Temp 37.0 09/26 0730 Pulse 66 09/26 0730 Resp 16 09/26 0730 FiO2 21 09/25 0308 O2 Flow Rate 1 09/24 1845 Vital Signs: Date Time Temp Pulse Resp B/P B/P Pulse O2 O2 Flow FiO2 Mean Ox Delivery Rate 09/26 0730 37.0 66 16 134/76 95.2 95 Room air 09/26 0700 Room air 09/26 0630 36.1 67 16 131/63 85 96 09/26 0038 36.2 70 16 156/78 104 96 09/25 2042 35.6 74 16 136/78 97 96 09/25 1616 36.5 67 18 124/65 84.2 98 Room air 09/25 1150 36.4 69 18 124/71 0.0 96 Room air 24 hour I O ending at 0700: 09/26 0700 09/25 1900 Intake Total 340.00 Output Total Balance 340.00 Intake, IV 120.00 Intake, Oral 220 Number Voids 2 Patient 86.183 kg Weight PATIENT WEIGHT: Weight (lb): 190Weight (oz): 0.62Weight (kg): 86.183 Medications:Active Meds + DC'd Last 24 HrsKetorolac Tromethamine (TORADOL) 15 MG Q6H PRN PRN IV Dexamethasone Sodium Phosphate 10 MG ONCE@1530 IV (DC) Famotidine (PEPCID) 40 MG DAILY PO Aspirin (ASPIRIN) 81 MG BID@0600,1700 PO Ketorolac Tromethamine (TORADOL) 15 MG Q6HR IV (DC) Ceftriaxone Sodium (ROCEPHIN) 2 GM Q24H IV Sodium Chloride (SODIUM CHLORIDE 0.9%) 100 MLDocusate Sodium (COLACE) 100 MG BID PO Lactated Ringer's (LACTATED RINGERS) 1,000 ML .Q10H IV Methocarbamol (ROBAXIN) 500 MG Q6H PRN PRN PO Acetaminophen (TYLENOL) 650 MG Q4H PRN PRN PO Al Hydrox/Mg Hydrox/Simethicone (MAALOX PLUS) 30 ML Q6H PRN PRN PO Benzocaine/Menthol (CEPACOL SORE THROAT LOZENGE) 1 LOZENGE Q2H PRN PRN PO Bisacodyl (BISACODYL 10 MG SUPP) 10 MG ASDIR PRN RECTAL Bisacodyl (bisacodyL) 10 MG DAILY PRN PO Diphenhydramine HCl (BENADRYL) 25 MG Q4H PRN PRN PO Hydrocodone Bitart/Acetaminophen (NORCO 5/325 TABLET) 1 UDTAB Q4H PRN PRN PO Hydrocodone Bitart/Acetaminophen (NORCO 10/325 TABLET) 1 UDTAB Q6H PRN PRN PO Hydromorphone HCl (DILAUDID) 0.5 MG Q6H PRN PRN IV Magnesium Hydroxide (MILK OF MAGNESIA) 30 ML BEDTIME PRN PRN PO Ondansetron HCl (ZOFRAN) 4 MG Q8H PRN PRN IV Promethazine HCl (PHENERGAN) 12.5 MG Q6H PRN PRN IM Tramadol HCl (ULTRAM) 50 MG Q6H PRN PRN PO Antibiotic start date:Antibiotic: rocephinStart Date: 09/24 Physical ExamGeneral appearance: alert, awake, orientedWound/incision: Location:left hip Site condition: dressing clean dry, dressing intactHead/Eyes: normocephalicCardiovascular: normal heart sounds, regular rate rhythmRespiratory: clear to auscultationAbdomen: non-tender, softNeuro/BILINGUAL MEDICAL RECEPTIONIST: alert, oriented X 3, normal speechSkin: no rashPsychiatry: normal affect ResultsFindings/Data:Microbiology:09/24 1505 HIP: Acid Fast Bacilli Smear - RECD09/24 150 HIP: Acid Fast Bacilli Culture - RECD09/24 150 HIP: Fungal Smear - RECD09/24 150 HIP: Fungal Culture - RECD09/24 1505 HIP: Wound Culture - RES GROUP B STREPTOCOCCUS PATIENT: SHYAM MEAD LOC: Y.5TH U #: [id number] AGE/SX: 62/M ROOM: [facility] RE09/24/22REG DR: Gaudencio Kate MD STATUS: ADM IN BED: A DIS: SPEC #: [id number] LISA: 09/24/22150 STATUS: RES REQ #: [id number] RECD: 09/24/22-[address]: Gaudencio Kate MD SOURCE: HIP ENTR: 09/24/22-[address]: SPDESC: LEFT ORDERED: WOUND COMMENTS: SPECIMEN COMMENT: CULTURE LEFT HIP #4 Procedure Result Verified Site > GRAM STAIN Final 09/24/22-2241 CL GRAM STAIN 09/24/22 NO ORGANISMS SEEN RARE WBCS SEEN > ANAEROBIC CULTURE Preliminary 09/25/22-1108 CL <No reportable results for this procedure> > WOUND CULTURE Preliminary 09/25/22-1108 CL Organism 1 GROUP B STREPTOCOCCUS MODERATE MODERATE AMOUNT OF BETA STREP GROUP B "GROUP B STREPTOCOCCI REMAIN UNIVERSALLY SUSCEPTIBLE TO AMPICILLIN, PENICILLIN AND CEFAZOLIN. RESISTANCE TO CLINDAMYCIN AND ERYTHROMYCIN CAN OCCUR. CONTACT MICROBIOLOGY LABORATORTY (EXT.1678) IF ERYTHROMYCIN AND/OR CLINDAMYCIN TESTING NECESSARY." CL - [facility] DONE AT: [facility] SHIVAM NAVA M.D. END OF REPORT 09/24 150 HIP: Anaerobic Culture - RES/ 1506 HIP: Gram Stain - RES/ 1504 HIP: Acid Fast Bacilli Smear - RECD09/24 1504 HIP: Acid Fast Bacilli Culture - RECD/ 1504 HIP: Fungal Smear - RECD/ 1504 HIP: Fungal Culture - RECD/ 1504 HIP: Wound Culture - RES GROUP B CUYDSAGGYMDRL94/10 1504 HIP: Anaerobic Culture - RES09/24 1504 HIP: Gram Stain - RES09/24 1502 HIP: Acid Fast Bacilli Smear - RECD09/24 1502 HIP: Acid Fast Bacilli Culture - RECD09/24 1502 HIP: Wound Culture - RES09/24 1502 HIP: Anaerobic Culture - RES09/24 1502 HIP: Gram Stain - RES09/24 1502 HIP: Fungal Smear - RECD09/24 1502 HIP: Fungal Culture - RECD09/24 1500 HIP: Acid Fast Bacilli Smear - RECD09/24 1500 HIP: Acid Fast Bacilli Culture - RECD09/24 1500 HIP: Fungal Smear - RECD09/24 1500 HIP: Fungal Culture - RECD09/24 1500 HIP: Wound Culture - RES09/24 1500 HIP: Anaerobic Culture - RES09/24 1500 HIP: Gram Stain - RES09/24 1130 NASAL: MSSA Surveillance Screen (PCR) - COMP09/24 1130 NASAL: MRSA DNA Surveillance Screen - COMP Results: labs reviewed, vital signs reviewed, current med profile rev'd Treatment Prophylaxis Treatment ProphylaxisLines: PICCCVC/PICC documentation:The data below has been imported from nursing documentation. Any exceptions have been noted below under Provider comments. CVC/PICC insertion date/time: CVC multi lumen double Basilic vein Right Inserted 09/25/22 1400 Provider comments on imported nursing data: [] Anti-infectives: ceftriaxone Diagnosis, Assessment PlanProblem List/A P: 1. LEFT KENDRA INFECTION 2. Group B streptococcal infection Free Text A P:Pt with hx of left AHA in april 2022 who now presents with Group B Strep infection. He is s/p I D and liner exchange. Surgical cxs confirm same GBS.Plan 6-8 weeks of IV Rocephin. PICC has been placed.Will follow with Augmentin or Cefadroxil suppression for several months.Orders: Procedure Date/time Status LINE INSERTION CHARGE 09/25 1400 Complete Plan discussed with: patient at 1042 RPT #:[id number] OF REPORT PRProgress xebb4661-09-76I64:38:00Y.RVPQ04090620-5163SUPwudl able for patient cftbDJQWUBREXNFKTA8321-64-47M78:42:46 [facility] 2022-09-26 10:04:00 [id number] x4PHVrRkX7Mber1MXW19OStXFu33d cnJLztIrkJHeJNV0UTcdAD2gdxF4115-37-03W81:04:00 [facility] ([facility])Clinical NoteREPORT#:[id number] REPORT STATUS: SignedDATE:09/26/22 TIME: 1004 PATIENT: SHYAM MEAD UNIT #: [id number]#: [id number] [facility] [birth year] AGE: 62 SEX: M ATTEND: Gaudencio Kate [facility] AUTHOR: Fran Mcdowell MD * ALL edits or amendments must be made on the electronic/computer document * Clinical NoteNote:[facility] Fran Luna M.D. (cell text [phone]) Assessment/Plan1.) Anemia of acute blood loss- .Hgb 10.6 -09/25/22, asymptomatic.2.) POD#2 I D Left AHA with revision Femoral head and acetabular liner- .acute multi-modal pain control and followup. Anticoagulation as per Dr. Kate. Abx asper Dr. Noel.3.) OsteoArthritis BPH- .continue on Rx.* OK for DISCHARGE per Internal Medicine - awaiting setup of home IV abx. Prior Events/Overnight: Uneventful.Chief Complaint: No significant complaints. ObjectiveVital Signs Date Temp Pulse Resp B/P B/P Mean Pulse Ox FiO2 09/25-09/26 96.1-98.6 66-74 16-18 124-156/63-78 0.0-104 95-98 Gen: Alert, oriented, in mild discomfort - sitting up in chair.Neck: No Masses, No Thyromegaly-CV: Regular Rate Rhythm / Edema- no significant Resp: Clear To Ascultation / Normal Respiratory EffortABD: NonTender / NonDistended MS/Skin: No sign of compartment syndrome / +ankle DF/PF Other: Labs/X-ray: none Fran Luna M.D. at 1100 RPT #:[id number] OF REPORT CLClinical yzwm9349-45-72B69:04:00Y.GXMS73567169-0661KRQecbj able for patient nurnBPRKKCDYIHFIJR7353-91-81Y81:00:36 [facility] 07:32:00 [id number] JN1GAc4z2RoxhbZF87PmwEidqSDC1 DE/zgBdPZAFSZuVB/e80cuo1vx95688-68-38T36:32:00 [facility] ([facility])Clinical NoteREPORT#:[id number] REPORT STATUS: SignedDATE:09/26/22 TIME: 731 PATIENT: SHYAM MEAD UNIT #: [id number]#: [id number] ROOM/BED: [facility]-ADOB: [birth year] AGE: 62 SEX: M ATTEND: Gaudencio Kate AUTHOR: Gaudencio Kate MD * ALL edits or amendments must be made on the electronic/computer document * Clinical NoteNote:POD# 2 Joint Arthroplasty I DPatient well, reports pain is mild-moderate AF VSSExam: dressing dry/intactMoves toes DF/PFSensory unchanged A/P: Mobilize with physical TherapyDVT prophylaxis ongoingFollowing labs, awaiting cxsIV abx per Dr NoelLaboratory Tests 09/25/22 0500:[Embedded Image Not Available] 09/24/22 1130:[Embedded Image Not Available]Vital Signs Date Temp Pulse Resp B/P B/P Mean Pulse Ox FiO2 09/25-09/26 96.1-98.6 66-74 16-18 124-156/63-78 0.0-104 95-98 Intake Output 09/26 0700 09/25 2300 09/25 1500 Intake Total 180.00 160.00 Output Total Balance 180.00 160.00 Intake, IV 60.00 60.00 Intake, Oral 120 100 Number Voids 2 Patient 190 lb Weight Laboratory Tests 09/24 09/25 1130 0500 Chemistry Sodium (136 - 145 mmol/L) 140 139 Potassium (3.5 - 5.1 mmol/L) 4.2 4.8 Chloride (98 - 107 mmol/L) 100.0 103.0 Carbon Dioxide (21 - 32 mmol/L) 32.4 28.8 BUN (7 - 18 mg/dL) 18 18 Creatinine (0.55 - 1.30 mg/dL) 1.01 0.92 Glomerular Filtr Rate (>60) 83.6 93.5 Glucose (70 - 110 mg/dL) 94 151 Calcium (8.2 - 10.1 mg/dL) 9.0 8.4 Total Bilirubin (0.2 - 1.00 mg/dL) 0.50 AST (15 - 37 U/L) 17.0 ALT (12 - 78 U/L) 33.0 Total Alk Phosphatase (46 - 116 U/L) 75 Total Protein (6.4 - 8.2 g/dL) 7.5 Albumin (3.4 - 5.0 g/dL) 3.5 Globulin (2.2 - 4.2 g/dL) 4.0 Albumin/Globulin Ratio (0.7 - 2.0) 0.9 Coagulation PT (9.7 - 12.5 secs) 14.0 INR (<2.0) 1.26 APTT (26.6 - 34.6 secs) 36.0 Hematology WBC (5.7 - 10.5 K/mm3) 10.7 RBC (4.2 - 5.4 M/mm3) 4.58 Hgb (12 - 16 g/dL) 13.1 10.6 Hct (37 - 47 %) 39.8 31.5 MCV (80 - 98 fL) 87 MCH (27 - 34 pg) 28.6 MCHC (30.8 - 34.1 g/dL) 32.9 RDW (11 - 16 %) 12.2 Plt Count (130 - 400 K/mm3) 311 MPV (8.9 - 12.1 fL) 10.0 Neut % (Auto) (45 - 70 %) 64.2 Lymph % (Auto) (20 - 40 %) 22.5 Milam % (Auto) (3 - 10 %) 10.6 Eos % (Auto) (1 - 5 %) 0.9 Baso % (Auto) (0.0 - 1.1 %) 0.4 Neut # (Auto) (2.00 - 7.50 K/mm3) 6.84 Lymph # (Auto) (1.50 - 4.00 K/mm3) 2.40 Milam # (Auto) (0.2 - 0.8 K/mm3) 1.13 Eos # (Auto) (0.04 - 0.4 K/mm3) 0.10 Baso # (Auto) (0.02 - 0.10 K/mm3) 0.04 Add Manual Diff (MANUAL DIFF) NO Nucleated RBC % (0 - 0 %) 0 at 0732 RPT #:[id number] OF REPORT CLClinical [id number]:32:00Y.[id number] able for patient hamiUWIHXYVEHDICME2205-26-62Z06:33:11 [facility] 2022-09-25 09:20:00 [id number] 2a42tgze/ykCqpvGpyTzloISMphkZ AL0H+TYdTzGyDpecBztR3jWNwMg2767-00-64E76:20:00 [facility])Clinical NoteREPORT#:[id number] REPORT STATUS: SignedDATE:09/25/22 TIME: 919 PATIENT: SHYAM MEAD UNIT #: [id number]#: [id number] ROOM/BED: [facility]-ADOB: [birth year] AGE: 62 SEX: M ATTEND: Gaudencio Kate [facility] AUTHOR: Fran Mcdowell MD * ALL edits or amendments must be made on the electronic/computer document * Clinical NoteNote:[facility] Fran Luna M.D. (cell text [phone]) Assessment/Plan1.) Anemia of acute blood loss- .Hgb 10.6, asymptomatic.2.) POD#2 I D Left AHA with revision Femoral head and acetabular liner- .acute multi-modal pain control and followup. Anticoagulation as per Dr. Kate. Abx asper Dr. Noel.3.) OsteoArthritis BPH- .continue on Rx. Prior Events/Overnight: Uneventful.Chief Complaint: No significant complaints. ObjectiveVital Signs: Date Time Temp Pulse Resp B/P B/P Pulse O2 O2 Flow FiO2 Mean Ox Delivery Rate 09/25 0709 97.9 64 18 124/77 92.5 95 Room air 09/25 0700 Room air 09/25 0519 99.1 65 14 109/65 79.4 97 Room air 09/25 0308 94 Room air 21 09/24 2222 96.8 77 16 112/68 82.4 95 Room air 09/24 2050 93 Room air 24 09/24 1936 97.9 83 16 128/75 92.6 97 Room air 09/24 1845 Nasal 1 98 cannula 09/24 1801 97.2 67 14 130/78 95.1 100 Nasal cannula 09/24 1800 100 Nasal 3 32 cannula 09/24 1745 97.9 68 15 123/76 100 Nasal 3 cannula 09/24 1734 Nasal 3 cannula 09/24 1730 97.9 65 15 118/72 100 Nasal 3 cannula 09/24 1715 65 15 119/75 100 Nasal 3 cannula 09/24 1700 64 15 127/59 98 Nasal 3 cannula 09/24 1645 58 14 99/58 100 Simple 10 mask 09/24 1644 Simple 10 mask 09/24 1640 98.4 58 14 96/51 100 Simple 10 mask Gen: Alert, oriented, in mild discomfort Neck: No Masses, No Thyromegaly-CV: Regular Rate Rhythm / Edema- no significant Resp: Clear To Ascultation / Normal Respiratory EffortABD: NonTender / NonDistended MS/Skin: No sign of compartment syndrome / +ankle DF/PF Other: Labs/X-ray: Laboratory Tests: 09/25 09/24 0500 1130 Chemistry Sodium (136 - 145 mmol/L) 139 140 Potassium (3.5 - 5.1 mmol/L) 4.8 4.2 Chloride (98 - 107 mmol/L) 103.0 100.0 Carbon Dioxide (21 - 32 mmol/L) 28.8 32.4 H BUN (7 - 18 mg/dL) 18 18 Creatinine (0.55 - 1.30 mg/dL) 0.92 1.01 Glomerular Filtr Rate (>60) 93.5 83.6 Glucose (70 - 110 mg/dL) 151 H 94 Calcium (8.2 - 10.1 mg/dL) 8.4 9.0 Total Bilirubin (0.2 - 1.00 mg/dL) 0.50 AST (15 - 37 U/L) 17.0 ALT (12 - 78 U/L) 33.0 Total Alk Phosphatase (46 - 116 U/L) 75 Total Protein (6.4 - 8.2 g/dL) 7.5 Albumin (3.4 - 5.0 g/dL) 3.5 Globulin (2.2 - 4.2 g/dL) 4.0 Albumin/Globulin Ratio (0.7 - 2.0) 0.9 Coagulation PT (9.7 - 12.5 secs) 14.0 H INR (<2.0) 1.26 APTT (26.6 - 34.6 secs) 36.0 H Hematology WBC (5.7 - 10.5 K/mm3) 10.7 H RBC (4.2 - 5.4 M/mm3) 4.58 Hgb (12 - 16 g/dL) 10.6 L 13.1 Hct (37 - 47 %) 31.5 L 39.8 MCV (80 - 98 fL) 87 MCH (27 - 34 pg) 28.6 MCHC (30.8 - 34.1 g/dL) 32.9 RDW (11 - 16 %) 12.2 Plt Count (130 - 400 K/mm3) 311 MPV (8.9 - 12.1 fL) 10.0 Neut % (Auto) (45 - 70 %) 64.2 Lymph % (Auto) (20 - 40 %) 22.5 Milam % (Auto) (3 - 10 %) 10.6 H Eos % (Auto) (1 - 5 %) 0.9 L Baso % (Auto) (0.0 - 1.1 %) 0.4 Neut # (Auto) (2.00 - 7.50 K/mm3) 6.84 Lymph # (Auto) (1.50 - 4.00 K/mm3) 2.40 Milam # (Auto) (0.2 - 0.8 K/mm3) 1.13 H Eos # (Auto) (0.04 - 0.4 K/mm3) 0.10 Baso # (Auto) (0.02 - 0.10 K/mm3) 0.04 Add Manual Diff (MANUAL DIFF) NO Nucleated RBC % (0 - 0 %) 0 Microbiology: Date/Time Procedure - Status Source Growth 09/24 1506 Acid Fast Bacilli Smear - RECD [facility] 09/24 1506 Acid Fast Bacilli Culture - RECD [facility] 09/24 1506 Fungal Smear - RECD [facility] 09/24 1506 Fungal Culture - RECD [facility] 09/24 1506 Wound Culture - RES [facility] 09/24 1506 Anaerobic Culture - RES [facility] 09/24 1506 Gram Stain - RES [facility] 09/24 1504 Acid Fast Bacilli Smear - RECD [facility] 09/24 1504 Acid Fast Bacilli Culture - RECD [facility] 09/24 1504 Fungal Smear - RECD [facility] 09/24 1504 Fungal Culture - RECD [facility] 09/24 1504 Wound Culture - RES [facility] 09/24 1504 Anaerobic Culture - RES [facility] 09/24 1504 Gram Stain - [facility] 09/24 1502 Acid Fast Bacilli Smear - RECD [facility] 09/24 1502 Acid Fast Bacilli Culture - RECD [facility] 09/24 1502 Wound Culture - RES [facility] 09/24 1502 Anaerobic Culture - RES [facility] 09/24 1502 Gram Stain - RES [facility] 09/24 1502 Fungal Smear - RECD [facility] 09/24 1502 Fungal Culture - RECD [facility] 09/24 1500 Acid Fast Bacilli Smear - RECD [facility] 09/24 1500 Acid Fast Bacilli Culture - RECD [facility] 09/24 1500 Fungal Smear - RECD [facility] 09/24 1500 Fungal Culture - RECD [facility] 09/24 1500 Wound Culture - [facility] 09/24 1500 Anaerobic Culture - [facility] 09/24 1500 Gram Stain - [facility] 09/24 1130 MSSA Surveillance Screen (PCR) - COMP NASAL 09/24 1130 MRSA DNA Surveillance Screen - COMP NASAL Fran Luna M.D. at 2225 RPT #:[id number] OF REPORT CLClinical [id number]:20:00Y.[id number] able for patient qyboLWLDZHYFQAWMUW7264-34-38V75:25:48 [facility] 2022-09-25 09:15:00 [id number]/ NoPOu6jd5x1pwwRgmVKvfbCLOpTBX agIF638jJkknk0A4FHFqhMGJxA13528-60-89N40:15:00 [facility] ([facility])Infectious Dis. Progress NoteREPORT#:[id number] REPORT STATUS: SignedDATE:09/25/22 TIME: 0915 PATIENT: SHYMA MEAD UNIT #: [id number]#: [id number] ROOM[facility]BED: [facility]-ADOB: [birth year] AGE: 62 SEX: M ATTEND: Gaudencio Kate [facility] AUTHOR: Susy Noel MD * ALL edits or amendments must be made on the electronic/computer document * SubjectiveChief complaint:Left KENDRA infectionHPI:A 62 y/o male s/p left KENDRA in April 2022 who now presents with increasing pain.Pt had aspiration on 09/20/21 showing 22,000 wbcs, 97 % polys and cxs grew GBS. Ptadmitted today for I D and poly liner exchange. Review of SystemsConstitutional:Denies: chills, fever. Objective GeneralVS/I O:Vital Signs Date Temp Pulse Resp B/P B/P Mean Pulse Ox FiO2 09/24-09/25 36.0-37.3 58-83 14-18 96-145/51-78 79.4-95.1 93-100 21-98 Last Documented: Result Date Time Pulse Ox 95 09/25 0709 B/P 124/77 09/25 0709 B/P Mean 92.5 09/25 708 O2 Delivery Room air 09/25 708 Temp 36.6 09/25 708 Pulse 64 09/25 0709 Resp 18 09/25 0709 FiO2 21 09/25 0308 O2 Flow Rate 1 09/24 1845 Vital Signs: Date Time Temp Pulse Resp B/P B/P Pulse O2 O2 Flow FiO2 Mean Ox Delivery Rate 09/25 07 36.6 64 18 124/77 92.5 95 Room air 09/25 0700 Room air 09/25 0519 37.3 65 14 109/65 79.4 97 Room air 09/25 0308 94 Room air 21 09/24 2222 36.0 77 16 112/68 82.4 95 Room air 09/24 2050 93 Room air 24 09/24 1936 36.6 83 16 128/75 92.6 97 Room air 09/24 1845 Nasal 1 98 cannula 09/24 1801 36.2 67 14 130/78 95.1 100 Nasal cannula 09/24 1800 100 Nasal 3 32 cannula 09/24 1745 36.6 68 15 123/76 100 Nasal 3 cannula 09/24 1734 Nasal 3 cannula 09/24 1730 36.6 65 15 118/72 100 Nasal 3 cannula 09/24 1715 65 15 119/75 100 Nasal 3 cannula 09/24 1700 64 15 127/59 98 Nasal 3 cannula 09/24 1645 58 14 99/58 100 Simple 10 mask 09/24 1644 Simple 10 mask 09/24 1640 36.9 58 14 96/51 100 Simple 10 mask 09/24 1035 36.3 71 16 145/74 99 Room air 24 hour I O ending at 0700: 09/25 0700 09/24 1900 Intake Total 240 300.00 Output Total 400 Balance -160 300.00 Intake, IV 300.00 Intake, Oral 240 Output, Urine 400 Patient 86.2 kg Weight Weight Standing scale Measurement Method PATIENT WEIGHT: Weight (lb): 190Weight (oz): 0.62Weight (kg): 86.200 Medications:Active Meds + DC'd Last 24 HrsKetorolac Tromethamine (TORADOL) 15 MG Q6H PRN PRN IV Dexamethasone Sodium Phosphate 10 MG ONCE@1530 IV Famotidine (PEPCID) 40 MG DAILY PO Aspirin (ASPIRIN) 81 MG BID@0600,1700 PO Ketorolac Tromethamine (TORADOL) 15 MG Q6HR IV Cefazolin Sodium (KEFZOL) 2 GM Q8H IV (CAN) Ceftriaxone Sodium (ROCEPHIN) 2 GM Q24H IV Sodium Chloride (SODIUM CHLORIDE 0.9%) 100 MLSodium Chloride (SODIUM CHLORIDE) 20 ML Q8H IV (DC) Docusate Sodium (COLACE) 100 MG BID PO Lactated Ringer's (LACTATED RINGERS) 1,000 ML .Q10H IV Methocarbamol (ROBAXIN) 500 MG Q6H PRN PRN PO Aztreonam (AZACTAM) 1 GM .STK-MED ONE IV (DC) Cefazolin Sodium (KEFZOL) 2 GM .STK-MED ONE IV (DC) Dexamethasone Sodium Phosphate (DECADRON) 8 MG .STK-MED ONE IV (DC) Hydromorphone HCl (DILAUDID) 2 MG .STK-MED ONE IV (DC) Ketamine HCl (Ketamine HCl) 100 MG .STK-MED ONE IV (DC) Ketorolac Tromethamine (TORADOL) 30 MG .STK-MED ONE IV (DC) Lactated Ringer's (LACTATED RINGERS) 2,000 ML .STK-MED ONE IV (DC) Lidocaine HCl (XYLOCAINE MPF 1% 5 mL) 5 ML .STK-MED ONE IV (DC) Midazolam HCl (VERSED) 5 MG .STK-MED ONE IV (DC) Ondansetron HCl (ZOFRAN) 4 MG .STK-MED ONE IV (DC) Propofol (DIPRIVAN) 200 MG .STK-MED ONE IV (DC) Propofol (DIPRIVAN) 1,000 MG .STK-MED ONE IV (DC) Rocuronium Waldron (Rocuronium Waldron 10 mg/mL) 50 MG .STK-MED ONE IV (DC) Sodium Chloride (SODIUM CHLORIDE 0.9%) 50 ML .STK-MED ONE IV (DC) Sugammadex Sodium (Bridion) 200 MG .STK-MED ONE IV (DC) Tranexamic Acid (CYKLOKAPRON) 2,000 MG .STK-MED ONE IV (DC) Acetaminophen (TYLENOL) 650 MG Q4H PRN PRN PO Al Hydrox/Mg Hydrox/Simethicone (MAALOX PLUS) 30 ML Q6H PRN PRN PO Benzocaine/Menthol (CEPACOL SORE THROAT LOZENGE) 1 LOZENGE Q2H PRN PRN PO Bisacodyl (BISACODYL 10 MG SUPP) 10 MG ASDIR PRN RECTAL Bisacodyl (bisacodyL) 10 MG DAILY PRN PO Diphenhydramine HCl (BENADRYL) 25 MG Q4H PRN PRN PO Hydrocodone Bitart/Acetaminophen (NORCO 5/325 TABLET) 1 UDTAB Q4H PRN PRN PO Hydrocodone Bitart/Acetaminophen (NORCO 10/325 TABLET) 1 UDTAB Q6H PRN PRN PO Hydromorphone HCl (DILAUDID) 0.5 MG Q6H PRN PRN IV Hydroxyzine (ATARAX) 25 MG Q4H PRN PRN PO (CAN) Magnesium Hydroxide (MILK OF MAGNESIA) 30 ML BEDTIME PRN PRN PO Ondansetron HCl (ZOFRAN) 4 MG Q8H PRN PRN IV Promethazine HCl (PHENERGAN) 12.5 MG Q6H PRN PRN IM Tramadol HCl (ULTRAM) 50 MG Q6H PRN PRN PO Vancomycin HCl (VANCOMYCIN (FOR PYXIS)) 0 .STK-MED ONE IV (DC) Fentanyl Citrate (SUBLIMAZE) 25 MCG PACU Q5MIN PRN PRN IV (DC) Hydralazine HCl (hydrALAZINE HCL) 10 MG PACU Q10MIN PRN PRN IV (DC) Hydrocodone Bitart/Acetaminophen (NORCO 5/325 TABLET) 1 UDTAB PACU Q4H PRN PRN PO (DC) Hydrocodone Bitart/Acetaminophen (NORCO 10/325 TABLET) 1 UDTAB PACU Q4H PRN PRN PO (DC) Hydromorphone HCl (DILAUDID) 0.4 MG PACU Q5MIN PRN PRN IV (DC) Meperidine HCl (MEPERIDINE HCL) 12.5 MG PACU Q5MIN PRN PRN IV (DC) Methocarbamol (ROBAXIN) 500 MG PACU ONCE PRN PO (DC) Metoprolol Tartrate (LOPRESSOR) 2 MG PACU Q10MIN PRN PRN IV (DC) Ondansetron HCl (ZOFRAN) 4 MG PACU ONCE PRN PRN IV (DC) Promethazine HCl (PHENERGAN) 6.25 MG PACU Q15MIN PRN PRN IM (DC) Acetaminophen (TYLENOL) 650 MG PREOP ONCE PO (DC) Aztreonam (AZACTAM) 1 GM PREOP IV (DC) Sodium Chloride (SODIUM CHLORIDE 0.9%) 50 MLCefazolin Sodium (KEFZOL) 2 GM ONCALL IV (DC) Celecoxib (CeleBREX) 200 MG PREOP PO (DC) Lactated Ringer's (LACTATED RINGERS) 1,000 ML PREOP IV FLUID IV (DC) Lidocaine HCl (XYLOCAINE) 2 ML PREOP SUBQ (DC) Methocarbamol (ROBAXIN) 500 MG PREOP ONCE PO (DC) Scopolamine HBr (TRANSDERM-SCOP) 1 MG PREOP TRANSDERM (DC) Pharmacy Profile Note (CLARIFICATION NEEDED) HT/WT PLEASE Nurse Do not delete this Rx. Pharmacy will delete. To remove the admin time, use FD (full document) Given = No Q2HR MISC (DC) Antibiotic start date:Antibiotic: rocephinStart Date: 09/24 Physical ExamGeneral appearance: alert, awake, orientedWound/incision: Location:left hip Site condition: dressing clean dry, dressing intactHead/Eyes: normocephalicCardiovascular: normal heart sounds, regular rate rhythmRespiratory: clear to auscultationAbdomen: non-tender, softNeuro/BILINGUAL MEDICAL RECEPTIONIST: alert, oriented X 3, normal speech ResultsFindings/Data:Microbiology:09/24 1506 HIP: Acid Fast Bacilli Smear - RECD09/24 1506 HIP: Acid Fast Bacilli Culture - RECD09/24 1506 HIP: Fungal Smear - RECD09/24 1506 HIP: Fungal Culture - RECD09/24 1506 HIP: Wound Culture - RES09/24 1506 HIP: Anaerobic Culture - RES09/24 1506 HIP: Gram Stain - RES09/24 1504 HIP: Acid Fast Bacilli Smear - RECD09/24 1504 HIP: Acid Fast Bacilli Culture - RECD09/24 1504 HIP: Fungal Smear - RECD09/24 1504 HIP: Fungal Culture - RECD09/24 1504 HIP: Wound Culture - RES09/24 1504 HIP: Anaerobic Culture - RES09/24 1504 HIP: Gram Stain - RES09/24 1502 HIP: Acid Fast Bacilli Smear - RECD09/24 1502 HIP: Acid Fast Bacilli Culture - RECD09/24 1502 HIP: Wound Culture - RES09/24 1502 HIP: Anaerobic Culture - RES09/24 1502 HIP: Gram Stain - RES09/24 1502 HIP: Fungal Smear - RECD09/24 1502 HIP: Fungal Culture - RECD09/24 1500 HIP: Acid Fast Bacilli Smear - RECD09/24 1500 HIP: Acid Fast Bacilli Culture - RECD09/24 1500 HIP: Fungal Smear - RECD09/24 1500 HIP: Fungal Culture - RECD09/24 1500 HIP: Wound Culture - RES09/24 1500 HIP: Anaerobic Culture - RES09/24 1500 HIP: Gram Stain - RES09/24 1130 NASAL: MSSA Surveillance Screen (PCR) - COMP09/24 1130 NASAL: MRSA DNA Surveillance Screen - COMP Vital Signs Date Temp Pulse Resp B/P B/P Mean Pulse Ox FiO2 09/24-09/25 36.0-37.3 58-83 14-18 96-145/51-78 79.4-95.1 93-100 21-98 Laboratory Tests 09/25 09/24 0500 1130 Chemistry Sodium (136 - 145 mmol/L) 139 140 Potassium (3.5 - 5.1 mmol/L) 4.8 4.2 Chloride (98 - 107 mmol/L) 103.0 100.0 Carbon Dioxide (21 - 32 mmol/L) 28.8 32.4 H BUN (7 - 18 mg/dL) 18 18 Creatinine (0.55 - 1.30 mg/dL) 0.92 1.01 Glomerular Filtr Rate (>60) 93.5 83.6 Glucose (70 - 110 mg/dL) 151 H 94 Calcium (8.2 - 10.1 mg/dL) 8.4 9.0 Total Bilirubin (0.2 - 1.00 mg/dL) 0.50 AST (15 - 37 U/L) 17.0 ALT (12 - 78 U/L) 33.0 Total Alk Phosphatase (46 - 116 U/L) 75 Total Protein (6.4 - 8.2 g/dL) 7.5 Albumin (3.4 - 5.0 g/dL) 3.5 Globulin (2.2 - 4.2 g/dL) 4.0 Albumin/Globulin Ratio (0.7 - 2.0) 0.9 Laboratory Tests 09/24 1130 Coagulation PT (9.7 - 12.5 secs) 14.0 H INR (<2.0) 1.26 APTT (26.6 - 34.6 secs) 36.0 H Laboratory Tests 09/25 09/24 0500 1130 Hematology WBC (5.7 - 10.5 K/mm3) 10.7 H RBC (4.2 - 5.4 M/mm3) 4.58 Hgb (12 - 16 g/dL) 10.6 L 13.1 Hct (37 - 47 %) 31.5 L 39.8 MCV (80 - 98 fL) 87 MCH (27 - 34 pg) 28.6 MCHC (30.8 - 34.1 g/dL) 32.9 RDW (11 - 16 %) 12.2 Plt Count (130 - 400 K/mm3) 311 MPV (8.9 - 12.1 fL) 10.0 Neut % (Auto) (45 - 70 %) 64.2 Lymph % (Auto) (20 - 40 %) 22.5 Milam % (Auto) (3 - 10 %) 10.6 H Eos % (Auto) (1 - 5 %) 0.9 L Baso % (Auto) (0.0 - 1.1 %) 0.4 Neut # (Auto) (2.00 - 7.50 K/mm3) 6.84 Lymph # (Auto) (1.50 - 4.00 K/mm3) 2.40 Milam # (Auto) (0.2 - 0.8 K/mm3) 1.13 H Eos # (Auto) (0.04 - 0.4 K/mm3) 0.10 Baso # (Auto) (0.02 - 0.10 K/mm3) 0.04 Add Manual Diff (MANUAL DIFF) NO Nucleated RBC % (0 - 0 %) 0 Microbiology Date/Time Procedure - Status Source Growth 09/24 113 MSSA Surveillance Screen (PCR) - COMP NASAL 09/24 113 MRSA DNA Surveillance Screen - COMP NASAL Results: labs reviewed, vital signs reviewed, current med profile rev'd Treatment Prophylaxis Treatment ProphylaxisLines: peripheralAnti-infectives: ceftriaxone Diagnosis, Assessment PlanProblem List/A P: 1. LEFT KENDRA INFECTION 2. Group B streptococcal infection Free Text A P:Pt with hx of left AHA in april 2022 who now presents with Group B Strep infection. He is s/p I D and liner exchange. Plan 6-8 weeks of IV Rocephin and will place PICC today.Will follow with Augmentin or Cefadroxil suppression for several months. at 0918 RPT #:[id number] OF REPORT PRProgress [id number]:15:00Y.[id number] able for patient yiwwIMWUCEWWSNCHHT5212-97-64I95:18:30 [facility] 2022-09-25 06:32:00 [id number] bfn/pZ/8XEKTaFXMLvkFkIcdohNDZ hmtuDNrGl4z1LIA52hZR6AG8OrB8849-57-46H26:32:00 [facility] ([facility])Clinical NoteREPORT#:[id number] REPORT STATUS: SignedDATE:09/25/22 TIME: 0632 PATIENT: SHYAM MEAD UNIT #: [id number]#: [id number] [facility]GE: 62 SEX: M [facility] AUTHOR: Gaudencio Kate MD * ALL edits or amendments must be made on the electronic/computer document * Clinical NoteNote:POD# 1 Joint Arthroplasty I DPatient well, reports pain is mild-moderate AF VSSExam: dressing dry/intactMoves toes DF/PFSensory unchanged A/P: Mobilize with physical TherapyDVT prophylaxis ongoingFollowing labs, awaiting cxsIV abx per Dr NoelLaboratory Tests 09/25/22 0500:[Embedded Image Not Available] 01/10/23 1130:[Embedded Image Not Available]Vital Signs Date Temp Pulse Resp B/P B/P Mean Pulse Ox FiO2 09/24-09/25 96.8-99.1 58-83 14-16 96-145/51-78 79.4-95.1 93-100 21-98 Intake Output 09/25 0700 09/24 2300 09/24 1500 Intake Total 540.00 Output Total 400 Balance 140.00 Intake, IV 300.00 Intake, Oral 240 Output, Urine 400 Patient 190 lb Weight Weight Standing scale Measurement Method at 0633 RPT #:[id number] OF REPORT CLClinical [id number]:32:00Y.[id number] able for patient hninUJHKTTBWHEHWEO7109-62-78G43:34:04 [facility] 2022-09-24 19:29:00 [id number] YA1j46xQyIu1Cwf2zdP+L39VKtw5G UBVtxnzGYw+Q0oP+Eu5jX+gD8Or7491-73-56S91:29:00 [facility] ([facility])Infect Disease Consult NoteREPORT#:[id number] REPORT STATUS: SignedDATE:09/24/22 TIME: 1928 PATIENT: SHYAM MEAD UNIT #: [id number]#: [id number] [facility] AGE: 62 SEX: M [facility] AUTHOR: Susy Noel MD * ALL edits or amendments must be made on the electronic/computer document * History of Present IllnessRequesting Clinician: Dr Jimenez for consult:Infected left THAHPI:A 62 y/o male s/p left KENDRA in April 2022 who now presents with increasing pain.Pt had aspiration on 09/20/21 showing 22,000 wbcs, 97 % polys and cxs grew GBS. Ptadmitted today for I D and poly liner exchange. History - Adult longitudinalAllergies:Coded Allergies:No Known Drug Allergies (04/23/22) Review of SystemsConstitutional:Denies: chills, fever. Objective GeneralVS/I O:Vital Signs Date Temp Pulse Resp B/P B/P Mean Pulse Ox FiO2 09/24 36.2-36.9 58-71 14-16 96-145/51-78 95.1 98-100 32-98 Last Documented: Result Date Time FiO2 98 09/24 1845 O2 Delivery Nasal cannula 09/24 1845 O2 Flow Rate 1 09/24 1845 Pulse Ox 100 09/24 1801 B/P 130/78 09/24 1801 B/P Mean 95.1 09/24 1801 Temp 36.2 09/24 1801 Pulse 67 09/24 1801 Resp 14 09/24 1801 Vital Signs: Date Time Temp Pulse Resp B/P B/P Pulse O2 O2 Flow FiO2 Mean Ox Delivery Rate 09/24 1845 Nasal 1 98 cannula 09/24 1801 36.2 67 14 130/78 95.1 100 Nasal cannula 09/24 1800 100 Nasal 3 32 cannula 09/24 1745 36.6 68 15 123/76 100 Nasal 3 cannula 09/24 1734 Nasal 3 cannula 09/24 1730 36.6 65 15 118/72 100 Nasal 3 cannula 09/24 1715 65 15 119/75 100 Nasal 3 cannula 09/24 1700 64 15 127/59 98 Nasal 3 cannula 09/24 1645 58 14 99/58 100 Simple 10 mask 09/24 1644 Simple 10 mask 09/24 1640 36.9 58 14 96/51 100 Simple 10 mask 09/24 1035 36.3 71 16 145/74 99 Room air PATIENT WEIGHT: Weight (lb): 190Weight (oz): 0.62Weight (kg): 86.200 Physical ExamGeneral appearance: alert, awake, orientedWound/incision: Location:left hip Site condition: dressing clean dry, dressing intactHead/Eyes: normocephalicCardiovascular: normal heart sounds, regular rate rhythmRespiratory: clear to auscultationAbdomen: non-tender, softNeuro/BILINGUAL MEDICAL RECEPTIONIST: alert, oriented X 3, normal speech ResultsFindings/Data:Laboratory Tests 09/24 1130 Chemistry Sodium (136 - 145 mmol/L) 140 Potassium (3.5 - 5.1 mmol/L) 4.2 Chloride (98 - 107 mmol/L) 100.0 Carbon Dioxide (21 - 32 mmol/L) 32.4 H BUN (7 - 18 mg/dL) 18 Creatinine (0.55 - 1.30 mg/dL) 1.01 Glomerular Filtr Rate (>60) 83.6 Glucose (70 - 110 mg/dL) 94 Calcium (8.2 - 10.1 mg/dL) 9.0 Total Bilirubin (0.2 - 1.00 mg/dL) 0.50 AST (15 - 37 U/L) 17.0 ALT (12 - 78 U/L) 33.0 Total Alk Phosphatase (46 - 116 U/L) 75 Total Protein (6.4 - 8.2 g/dL) 7.5 Albumin (3.4 - 5.0 g/dL) 3.5 Globulin (2.2 - 4.2 g/dL) 4.0 Albumin/Globulin Ratio (0.7 - 2.0) 0.9 Laboratory Tests 09/24 1130 Coagulation PT (9.7 - 12.5 secs) 14.0 H INR (<2.0) 1.26 APTT (26.6 - 34.6 secs) 36.0 H Laboratory Tests 09/24 1130 Hematology WBC (5.7 - 10.5 K/mm3) 10.7 H RBC (4.2 - 5.4 M/mm3) 4.58 Hgb (12 - 16 g/dL) 13.1 Hct (37 - 47 %) 39.8 MCV (80 - 98 fL) 87 MCH (27 - 34 pg) 28.6 MCHC (30.8 - 34.1 g/dL) 32.9 RDW (11 - 16 %) 12.2 Plt Count (130 - 400 K/mm3) 311 MPV (8.9 - 12.1 fL) 10.0 Neut % (Auto) (45 - 70 %) 64.2 Lymph % (Auto) (20 - 40 %) 22.5 Milam % (Auto) (3 - 10 %) 10.6 H Eos % (Auto) (1 - 5 %) 0.9 L Baso % (Auto) (0.0 - 1.1 %) 0.4 Neut # (Auto) (2.00 - 7.50 K/mm3) 6.84 Lymph # (Auto) (1.50 - 4.00 K/mm3) 2.40 Milam # (Auto) (0.2 - 0.8 K/mm3) 1.13 H Eos # (Auto) (0.04 - 0.4 K/mm3) 0.10 Baso # (Auto) (0.02 - 0.10 K/mm3) 0.04 Add Manual Diff (MANUAL DIFF) NO Nucleated RBC % (0 - 0 %) 0 Microbiology:09/24 1506 HIP: Acid Fast Bacilli Smear - RECD09/24 1506 HIP: Acid Fast Bacilli Culture - RECD09/24 1506 HIP: Fungal Smear - RECD09/24 1506 HIP: Fungal Culture - RECD09/24 1506 HIP: Wound Culture - RECD09/24 1506 HIP: Anaerobic Culture - RECD09/24 1506 HIP: Gram Stain - RECD09/24 1504 HIP: Acid Fast Bacilli Smear - RECD09/24 1504 HIP: Acid Fast Bacilli Culture - RECD09/24 1504 HIP: Fungal Smear - RECD09/24 1504 HIP: Fungal Culture - RECD09/24 1504 HIP: Wound Culture - RECD09/24 1504 HIP: Anaerobic Culture - RECD09/24 1504 HIP: Gram Stain - RECD09/24 1502 HIP: Acid Fast Bacilli Smear - RECD09/24 1502 HIP: Acid Fast Bacilli Culture - RECD09/24 1502 HIP: Wound Culture - RECD09/24 1502 HIP: Anaerobic Culture - RECD09/24 1502 HIP: Gram Stain - RECD09/24 1502 HIP: Fungal Smear - RECD09/24 1502 HIP: Fungal Culture - RECD09/24 1500 HIP: Acid Fast Bacilli Smear - RECD09/24 1500 HIP: Acid Fast Bacilli Culture - RECD09/24 1500 HIP: Fungal Smear - RECD09/24 1500 HIP: Fungal Culture - RECD09/24 1500 HIP: Wound Culture - RECD09/24 1500 HIP: Anaerobic Culture - RECD09/24 1500 HIP: Gram Stain - RECD09/24 1130 NASAL: MSSA Surveillance Screen (PCR) - RECD09/24 1130 NASAL: MRSA DNA Surveillance Screen - RECD Results: labs reviewed, vital signs reviewed, current med profile rev'd Treatment Prophylaxis Treatment ProphylaxisLines: peripheralAnti-infectives: ceftriaxone Diagnosis, Assessment PlanProblem List/A P: 1. LEFT KENDRA INFECTION 2. Group B streptococcal infection Free Text DxA P NotesFree text DxA P notes:Pt with hx of left AHA in april 2022 who now presents with Group B Strep infection. He is s/p I D and liner exchange today. Plan 6-8 weeks of IV Rocephinand will place PICC in am. at 0915 RPT #:[id number] OF REPORT QJPatnlfoldgmf8206-56-10E68:29:00Y.[id number] 150AVAvailable for patient dcikKEKUWNDKFODOCH2047-59-09K06:15:40 [facility] 2022-09-24 18:39:00 [id number] HMyIDeE/wA1h02SUnGUxFjbnJQTY+ ooKQ5QLwBinyei4Y+JJwKWMXolj7313-31-52I17:39:00 [facility]Clinical NoteREPORT#:[id number] REPORT STATUS: SignedDATE:09/24/22 TIME: 183 PATIENT: SHYAM MEAD UNIT #: [id number]#: [id number] [facility] AGE: 62 SEX: M ATTEND: Gaudencio Kate [facility] AUTHOR: Fran Mcdowell MD * ALL edits or amendments must be made on the electronic/computer document * Clinical NoteNote:[facility] Fran Luna MD(cell text [phone])Internal Medicine Consult at request of : Dr Gaudencio Kate. Chief Complaint: left hip pain HPI: 62 yo M is now s/p Irrigation and debridement of Left Anterior Total Hip Arthroplasty (AHA), revisional femoral head and acetabular liner by Dr. Kate. Mr. Mead is s /p left AHA on 04/25/2022. He relates fever of 102 and he heard a pop while stretching 4 days ago. Comorbidities: see below. PmHx: . Osteoarthritis, BPH ALLERGY: Allergies:No Known Drug Allergies (Coded, 04/23/22) Home Medications: Home Medications:ASPIRIN EC (ECOTRIN) 81 MG PO BID MEALS HYDROcodone/APAP (HYDROcodone/APAP 10/325) 1 TAB PO Q6HPRN PRN prn break throughpain POLYETHYLENE GLYCOL 3350 (MIRALAX) 17 GM PO BEDTIME MELOXICAM (MOBIC) 15 MG PO DAILY LACTOBACILLUS ACIDOPHILUS (PROBIOTIC ACIDOPHILUS) 1 CAP PO DAILY methocarbamoL (ROBAXIN) 500 MG PO TID PRN PRN muscle spasm traMADol (ULTRAM) 50 MG PO Q4H PRN PRN pain SgHx: . Left AHA SHx: Tob: none FHx: .No significant hx of DVT/PE.Alcohol: Quit Drugs: none Lives: with son..Vitals:Vital Signs: Date Time Temp Pulse Resp B/P B/P Pulse O2 O2 Flow FiO2 Mean Ox Delivery Rate 09/24 1801 97.2 67 14 130/78 95.1 100 Nasal cannula 09/24 1800 100 Nasal 3 32 cannula 09/24 1745 97.9 68 15 123/76 100 Nasal 3 cannula 09/24 1734 Nasal 3 cannula 09/24 1730 97.9 65 15 118/72 100 Nasal 3 cannula 09/24 1715 65 15 119/75 100 Nasal 3 cannula 09/24 1700 64 15 127/59 98 Nasal 3 cannula 09/24 1645 58 14 99/58 100 Simple 10 mask 09/24 1644 Simple 10 mask 09/24 1640 98.4 58 14 96/51 100 Simple 10 mask 09/24 1035 97.4 71 16 145/74 99 Room air Gen: Groggy, in mild discomfort.EYE: Nl lids conjunctiva.ENT: Nl ears Nose, nl lips,. Neck: Supple, nl thyroid, No masses.CV: Regular Rate Rhythm, no heave or significant murmur. Edema- none RESP: Clear to Auscultation, normal Respiratory effort.ABD: Soft, NonDistended,.LYM: No significant cervical Lymphadenopathy.MS: No sign of compartment syndrome, hip dressing is dry and intact.NEURO: Nonfocal, grossly normal sensation of LE, +Ankle DF/PF..Preop Labs(09/24/2022): CBC:. Hgb 13.1, Plt 311, CHEM: Na 140, K 4.2, Cr 1.01 (eGFR 83.6%), . Ekg: Sinus Bradycardia at 57 BPM .(medium to high risk of complications or morbidity) (major surgery) (IV sedative, meds).Assessment Plan1.) Anemia of Acute Blood Loss- .will recheck tomorrow. 2.) S/p I D Left AHA with revision Femoral head and acetabular liner- .acute multi-modal pain control and followup. Anticoagulation as per Dr. Kate. Abx asper Dr. Noel.3.) OsteoArthritis BPH- .continue on Rx.. Fran Luna M.D. Thanks!..... G8417 BMI documented as above normal parameters and a f/u plan is hoyglcbusfF1217 - Patient screened for tobacco use AND identified as a tobacco non-gbky1260N - ACP discussion - default code status while at [facility]. at 2046 RPT #:[id number] OF REPORT CLClinical nwuk6356-49-39A14:39:00Y.XTZY85082864-2730NBNmbpe able for patient ivmuQYGUJGGLTDCAFK8457-49-45U66:46:45 [facility] 2022-09-24 16:30:00 [id number] WaQtGhIa7y4nX+RO5uNqIj4lmYM7X eydkJqKKduEAjg6h8pBMT1j2upe9746-58-45A88:30:48265 0-0041 [facility] [place] [id number] PATIENT NAME: SHYAM MEAD ADMIT DATE: 09/24/22ACCOUNT NO: [id number] ROOM NO: Y.512 AGE: 62 REPORT TYPE: OPERATIVE REPORT SEX: M ADMITTING PHYSICIAN:Gaudencio Kate MD ATTENDING PHYSICIAN:Gaudencio Kate MD OPERATION DATE: 09/24/2022 PREOPERATIVE DIAGNOSIS: Infected left total hip arthroplasty. POSTOPERATIVE DIAGNOSIS: Infected left total hip arthroplasty. PROCEDURE: Irrigation and debridement of left hip, revision of femoral head andacetabular liner and revision of scar measuring 12 cm. SURGEON: Gaudencio Kate MD [employer] RECOV[employer] SUPERVISOR: Shweta Granda PA-C ANESTHESIA: General endotracheal anesthesia. INDICATIONS: A 62-year-old male with 7-day history of hip pain after feeling a pop. The patient reports having noted some fever a few days before that. ER visit showed bacteria within his bloodstream. The patient was concerned about hip infection. Workup revealed elevated cell count at about 21,000 white cells. We had a discussion with the patient regarding concern for deep infection and since the patient was within two weeks of onset of symptoms, we recommended hip irrigation and debridement, knowing that the chances were better than doing a full, I mean, a 2-stage exchange early on. The options were both available at the time of surgery. We discussed with the patient prior to starting that intraoperative findings would dictate the option chosen whether the patient was undergoing washout versus spacer placement. The patient understood the risk of surgery and wished to proceed. PROCEDURE IN DETAIL: The patient was identified in the holding area. His operative site was marked and then brought back to the OR and placed supine on the operating table. Once adequate anesthesia was obtained, his left hip and leg were prepped and draped in the usual sterile fashion. Surgical timeout was performed for correct patient, surgical site and surgery verified that his antibiotics had been held, so we could obtain intraoperative cultures. The old scar was recreated and a full excisional debridement of entire scar measuring 12cm full thickness all the way to the fascia using a sharp surgical knife for dissection was performed. The fascia was opened and the interval between the sartorius rectus and TFL and gluteus medius was dissected, the retractors were placed around the neck. Attempts of removing fluid from the capsule were done without success. We opened the capsule and did a capsulotomy and placed retractors inside the joint. There were no major signs of infection. Visually,we sent several tissue samples throughout the case to the lab for additional PATIENT NAME: SHYAM MAED cultures. The hip was dislocated. The head was removed. The trunnion and the stem were inspected showing no signs of loosening. Attention was directed to the cup where the cup was inspected again with no signs of loosening. The poly liner was removed. Some additional fluid was noted behind the cup and samples were sent. The cup was again inspected and curettaged through the screw holes of the cup without any concerns for deeper involvement. We then washed out the joint and the metal surfaces with multiple solutions starting with Bactisure to decrease the possibility of glycocalyx formation, followed by washout with saline followed by Betadine solution soak, followed by washout with saline, followed by peroxide soaked another wash out with a total of 9 liters pulsatile lavage saline. The surfaces looked extremely clean. After our washout with all four solutions, we proceeded to place vancomycin powder behind the liner. A newliner for the 56 DePuy [place] cup was inserted and fully seated. The neck andtrunnion were visualized. A brand new DePuy 40 mm ceramic head with titanium sleeve was inserted onto the trunnion that was undamaged. The hip was reduced. Range of motion and stability were noted to be excellent. Additional vancomycinpowder was poured into the tissues and then the closure was done in standard fashion using monofilament suture. The patient was awoken from anesthesia and transferred to recovery room in stable condition. There were no complications. All counts were correct. EBL was 100 mL. INDICATIONS FOR MONOMER RECOVERY SUPERVISOR: The presence of a skilled surgical coordinator was medically necessary to aid for the entire procedure. Their responsibilities include patient positioning, retraction of soft tissues for wide exposure so that the surgeon can use both hands to perform the surgery, as well as stabilizing the limb for surgical instrumentation throughout the case. Retraction for exposure/visualization, as well as stabilization of the extremityis vital to the procedure and not possible without an assistant maintenance manager. In addition having an assistant maintenance manager shortens operative times which decreases expenses and improves outcomes. I am not part of any residency or fellowship training programs and therefore require the help of the assistant maintenance manager listed above for this surgery. Dictated By: Gaudencio Kate MD Date Dictated: 09/24/2022 16:30:25Date Transcribed: 09/24/2022 19:16:58RNG/VSRJob #: [id number] ID: [id number] by Gaudencio Kate MD On 09/25/2022 10:15:25 AM at 1015 PATIENT NAME: SHYAM MEAD wuqgul1528-61-94H84:16:00Y.[id number] lable for patient xbfbLXULBBXXVXFWTL0724-59-10P53:15:52 [facility] 2022-09-24 16:20:00 [id number] jma8ywjJRIw+p/99CEcoV/jDu6a02 5q3/lQzyjmSR1sdWCac/7vKW3W75548-12-25E22:20:00 [facility])Brief Op NoteREPORT#:[id number] REPORT STATUS: SignedDATE:09/24/22 TIME: 1620 PATIENT: SHYAM MEAD UNIT #: [id number]#: [id number] ROOM/BED: [place] [address]DOB: [birth year] AGE: 62 SEX: M ATTEND: Gaudencio Kate [facility] AUTHOR: Gaudencio Kate MD * ALL edits or amendments must be made on the electronic/computer document * Op/Inv Proc Note - BriefPre-procedure diagnosis:L HIP INFECTIONPost-procedure diagnosis: same as pre procedure dxProcedures performed:L HIP I D, REVISION OF FEMORAL HEAD AND ACETABULAR LINER , REV SCAR 12CMPrimary Surgeon:HUMBLE Manhole Builder(s): ROSALINA PACFindings:MINOR SIGNS OF DEEP INFECTION, NO LOOSENING OF THE COMPONENTSComplications: noneEstimated blood loss in ml's: 100Specimens removed/altered: CXS TO THE LAB at 1622 RPT #:[id number] OF REPORT OPOperative mubepi7749-13-83V45:20:00Y.MFHH74651132-0335SLMad ilable for patient xuzjDKBZSDASANFYNM3866-13-40O82:22:48 [facility] 09:26:00 [id number] W8ZDxyI9g/Tssw24XfFvSvUb4RUM/ k//wDY3G1uPyl6pCICIzI5FQ6A+/2484-05-12N90:26:0 0 [facility])Clinical NoteREPORT#:[id number] REPORT STATUS: SignedDATE:04/26/22 TIME: 925 PATIENT: SHYAM MEAD UNIT #: [id number]#: [id number] ROOM/BED: Y.323-ADOB: [birth year] AGE: 61 SEX: M ATTEND: Gaudencio Kate [facility] AUTHOR: Fran Mcdowell MD * ALL edits or amendments must be made on the electronic/computer document * Clinical NoteNote:[facility] Fran Luna M.D. (cell text [phone]) Assessment/Plan1.) Anemia of acute blood loss- .Hgb 10.7, asymptomatic.2.) S/p Left AHA- .acute multi-modal pain control and followup. Anticoagulation as per Dr. Kate.3.) OsteoArthritis BPH- .continue on Rx.* OK for DISCHARGE per Internal Medicine. Prior Events/Overnight: Uneventful.Chief Complaint: No significant complaints. ObjectiveVital Signs: Date Time Temp Pulse Resp B/P B/P Pulse O2 O2 Flow FiO2 Mean Ox Delivery Rate 04/26 0724 98.4 76 14 103/63 76.0 98 Nasal cannula 04/26 0405 97.7 58 16 95/60 71.5 97 04/26 0244 94 Nasal 3 32 cannula 04/25 2225 Nasal 3 cannula 04/25 2224 97.5 88 16 116/68 84.0 97 04/25 2100 96 Nasal 3 32 cannula 04/25 1941 97.3 56 16 108/67 80.6 99 04/25 1626 Nasal 3 cannula 04/25 1600 100 Nasal 1 cannula 04/25 1546 96.3 56 17 116/72 86.4 100 Nasal cannula 04/25 1525 97.7 60 12 112/62 100 Nasal 3 cannula 04/25 1520 Nasal 3 cannula 04/25 1510 62 14 105/59 100 Nasal 3 cannula / 1450 71 11 96/56 98 Nasal 3 cannula 08 1449 Simple 6 mask 08/ 1435 67 14 98/53 100 Simple 6 mask / 1420 97.6 68 18 108/57 100 Simple 6 mask 08/ 1156 54 15 123/65 100 Simple 6 mask Gen: Alert, oriented, in mild discomfort Neck: No Masses, No Thyromegaly-CV: Regular Rate Rhythm / Edema- no significant Resp: Clear To Ascultation / Normal Respiratory EffortABD: NonTender / NonDistended MS/Skin: No sign of compartment syndrome / +ankle DF/PF Other: thigh soft, incision clean Labs/X-ray: Laboratory Tests: 04/26 0415 Chemistry Sodium (136 - 145 mmol/L) 139 Potassium (3.5 - 5.1 mmol/L) 4.7 Chloride (98 - 107 mmol/L) 105.0 Carbon Dioxide (21 - 32 mmol/L) 26.0 BUN (7 - 18 mg/dL) 22 H Creatinine (0.55 - 1.30 mg/dL) 1.09 Glomerular Filtr Rate (>60) 68.5 Glucose (70 - 110 mg/dL) 139 H Calcium (8.2 - 10.1 mg/dL) 8.3 Hematology Hgb (12 - 16 g/dL) 10.7 L Hct (37 - 47 %) 31.5 L Fran Luna M.D. at 1121 [facility] #:[id number] OF REPORT CLClinical psrh6517-79-04M40:26:00Y.[id number] able for patient nkyqOOUPBSRTBFMYHY4319-37-60F67:21:30 [facility] 2022-04-26 07:37:00 [id number] 7SKhb0LYehTK1DliRwvV5+OLAovy7 WosyFXp+oDGETknqecO+BRmnR62BW/60981-42-64I86:37:0 0 [facility])Discharge SummaryREPORT#:[id number] REPORT STATUS: SignedDATE:04/26/22 TIME: 736 PATIENT: SHYAM MEAD UNIT #: [id number]#: [id number] ROOM/BED: Y323-ADOB: [birth year] AGE: 61 SEX: M ATTEND: Gaudencio Kate MDADM AUTHOR: Gaudencio Kate MD * ALL edits or amendments must be made on the electronic/computer document * General InformationDischarge date: 04/26/22Discharge diagnosis:sameHospital course:Discharge Diagnosis: Left Hip Degenerative DiseaseProcedure: Left Hip ArthroplastyHospital Course and FindingsThe patient underwent the procedure without incident. Findings were significantfor degenerative disease of the hip. The patient was hemodynamically and medically monitored during the postoperative period. Anticoagulation was instituted for postoperative DVT prophylaxis. The patient was progressively able to tolerate PO pain medications and the appropriate diet. Physical therapywas instituted, with a progressive ability to ambulate and perform exercises. The patient was eventually deemed stable and safe for discharge. Despite factors which projected a longer hospital stay, the patient fulfilled criteria for earlier than expected discharge, including control of pain, early mobilization with therapy, and a stable hemodynamic status. At discharge, the patient was comfortable, with a controlled pain level. There were no chest or abdominal symptoms present. Discharge physical examination demonstrated stable vital signs and no acute distress. The patient had an intact wound with no significant drainage, and no calf tenderness and a negativeHoman s sign bilaterally. There were no neurologic or vascular deficits or changes from the preoperative state.Disposition: Discharged to homeDischarge Condition: StableInstructions: Instruction sheet given to patientActivity: Ambulate with assistance and walking aid, with weight-bearing as instructed in the hospital. Weight bearing limitations were reviewed with the patient during the hospitalization. Diet: As per preoperativelyPrescriptions1. Pain Medications: As per discharge prescription, with progressive weaning as pain decreases2. Anticoagulation: As per discharge prescription, or PreOp anticoagulant, as discussed with patientFollow-up Appointment: Patient instructed to arrange appointment for an office visit in 2 weeks Med Rec Med RecDischarge meds:Start taking the following new medications:ASPIRIN EC (ECOTRIN) 81 MG TAB.EC 81 MILLIGRAM ORAL TWICE DAILY WITH MEALS. Qty = 60 No Refills DOXYCYCLINE HYCLATE (VIBRAMYCIN) 100 MG CAP 100 MILLIGRAM ORAL TWICE DAILY. Days = 7 Qty = 14 No Refills HYDROcodone/APAP (HYDROcodone/APAP 10/325) 10 MG-325 MG TAB 1 TABLET ORAL EVERY SIX HOURS NEEDED as needed for prn break through pain Qty = 28 No Refills Instructions: one tab every 6 hours only for breakthrough pain POLYETHYLENE GLYCOL 3350 (MIRALAX) 17 GRAM POWDER 17 GRAM ORAL BEDTIME. Days = 30 Qty = 30 No Refills Instructions: please take daily for constipation prevention MELOXICAM (MOBIC) 15 MG TAB 15 MILLIGRAM ORAL DAILY. Qty = 30 No Refills methocarbamoL (ROBAXIN) 500 MG TAB 500 MILLIGRAM ORAL THREE TIMES DAILY NEEDED. as needed for muscle spasm Qty = 28 No Refills traMADol (ULTRAM) 50 MG TAB 50 MILLIGRAM ORAL EVERY 4 HOURS NEEDED. as needed for pain Days = 7 Qty = 28 No Refills Discharge Instructions PCP)( Discharge to: Home/Self Care Discharge InstructionsAdditional Discharge Routines: Attending Follow-Up)( Diet: Regular)( Activity: As Tolerated, Crutches/Walker, Do not Submerge Incision, No Driving Follow-up AppointmentsAttending Physician: Attending Physician: Gaudencio Kate MD at 0737 RPT #:[id number] OF REPORT DSDischarge nuekpwi7040-47-23T57:37:00Y.[id number] ailable for patient niqqLPNZKLCVWLUOBG4186-84-13A63:37:44 [facility] 07:37:00 [id number]+ XoqUH5/tSTUTHoMHaMpFTe+tHlKge /4zMlWGX63jfwWYPaLJmYeA1OqfmjGJ3114-54-90H94:37:0 0 [facility])Clinical NoteREPORT#:[id number] REPORT STATUS: SignedDATE:04/26/22 TIME: 0737 PATIENT: SHYAM MEAD UNIT #: [id number]#: [id number] ROOM/BED: 323-ADOB: [birth year] AGE: 61 SEX: M ATTEND: Gaudencio Kate MDADM AUTHOR: Gaudencio Kate MD * ALL edits or amendments must be made on the electronic/computer document * Clinical NoteNote:POD# 1 left hip Joint ArthroplastyPatient well, reports pain is mild-moderate AF VSSExam: dressing dry/intactMoves toes DF/PFSensory unchanged A/P: Mobilize with physical TherapyDVT prophylaxis ongoingFollowing labsdo not recover, patient may showerDischarge planning at 0738 [facility] #:[id number] OF REPORT CLClinical uzaa7318-38-87H03:37:00Y.UUGF78738757-3934UIObvaq able for patient isowQUZZNUITOMYJYF5187-70-47D99:38:14 [facility] 2022-04-25 17:10:00 [id number] V9vAWOSWXkq8ribTpMOCAT4pGKMW8 odMmph8V2EyJMLcaaogsQUSQcKz/ZF/3949-39-38O46:10:0 0 [facility])Clinical NoteREPORT#:[id number] REPORT STATUS: SignedDATE:04/25/22 TIME: 1710 PATIENT: SHYAM MEAD UNIT #: [id number]#: [id number] [facility]: 61 SEX: M [facility] AUTHOR: Fran Mcdowell MD * ALL edits or amendments must be made on the electronic/computer document * Clinical NoteNote:[facility] Fran Luna MD(cell text [phone])Internal Medicine Consult at request of : Dr Gaudencio Kate. Chief Complaint: left hip pain HPI: 61yo M is now s/p Left Anterior Total Hip Arthroplasty (AHA) by Dr. Kate. Mr. Mead relates years of progressive left hip pain (recently severe), worse with activity, and with restricted motion at times in quality. Hehas failed conservative management.Comorbidities: see below. PmHx: .Osteoarthritis, BPH ALLERGY: Allergies:No Known Drug Allergies (Coded, 04/23/22) Home Medications: Home Medications:ASPIRIN EC (ECOTRIN) 81 MG PO BID MEALS DOXYCYCLINE HYCLATE (VIBRAMYCIN) 100 MG PO BID HYDROcodone/APAP (HYDROcodone/APAP 10/325) 1 TAB PO Q6HPRN PRN prn break throughpain POLYETHYLENE GLYCOL 3350 (MIRALAX) 17 GM PO BEDTIME MELOXICAM (MOBIC) 15 MG PO DAILY methocarbamoL (ROBAXIN) 500 MG PO TID PRN PRN muscle spasm traMADol (ULTRAM) 50 MG PO Q4H PRN PRN pain SgHx: .[place] teeth SHx: Tob: none FHx: .No significant hx of DVT/PE.Alcohol: none Drugs: none Lives: with spouse..Vitals:Vital Signs: Date Time Temp Pulse Resp B/P B/P Pulse O2 O2 Flow FiO2 Mean Ox Delivery Rate 04/25 1626 Nasal 3 cannula / 1546 96.3 56 17 116/72 86.4 100 Nasal cannula 08/ 1525 97.7 60 12 112/62 100 Nasal 3 cannula /11 1520 Nasal 3 cannula 08/ 1510 62 14 105/59 100 Nasal 3 cannula 08/11 1450 71 11 96/56 98 Nasal 3 cannula 08/11 1449 Simple 6 mask 08/11 1435 67 14 98/53 100 Simple 6 mask 08/11 1420 97.6 68 18 108/57 100 Simple 6 mask 08/11 1156 54 15 123/65 100 Simple 6 mask 08/11 0910 97.4 59 16 130/73 98 Room air Gen: Alert, in mild discomfort.EYE: Nl lids conjunctiva.ENT: Nl ears Nose, nl lips,. Neck: Supple, nl thyroid, No masses.CV: Regular Rate Rhythm, no heave or significant murmur. Edema- none RESP: Clear to Auscultation, normal Respiratory effort.ABD: Soft, NonDistended,.LYM: No significant cervical Lymphadenopathy.MS: No sign of compartment syndrome, hip dressing is dry and intact.NEURO: Nonfocal, grossly normal sensation of LE, +Ankle DF/PF..Preop Labs(04/23/22): CBC:. Hgb 14.4 Plt 180, CHEM: Na 141, K 4.2, Cr 1.14 (eGFR 65.1%), . Ekg: Sinus bradycardia at 57 bpm.(medium to high risk of complications or morbidity) (major surgery) (IV sedative, meds).Assessment Plan1.) Anemia of Acute Blood Loss- .will recheck tomorrow. 2.) S/p Left AHA- .acute multi-modal pain control and followup. Anticoagulation as per Dr. Kate.3.) OsteoArthritis BPH- .continue on Rx.. Fran Luna M.D. Thanks!.....G8417 BMI documented as above normal parameters and a f/u plan is mofvcoynztF9499 - current medications obtained and reviewed.1124F - offered discussion on advanced care plan and patient declined to addressissue at this time. at 2354 RPT #:[id number] OF REPORT CLClinical vkwx9446-15-45R69:10:00Y.DYUQ92529765-3543UCZjnox able for patient pxyhKJFVIQVGOPKCVZ3972-95-05X12:54:37 [facility] 2022-04-25 13:53:00 [id number] qXi3K8AaojiTfX4FC/3GQrfRjO8/Q QYHMSikwO99TNhJbX6K4drojwUu5Bs50197-14-70L27:53:0 0 [facility])Operative Note - FullREPORT#:[id number] REPORT STATUS: SignedDATE:04/25/22 TIME: 1353 PATIENT: SHYAM MEAD UNIT #: [id number]#: [id number] ROOM/BED:: 59 AGE: 61 SEX: M ATTEND: Gaudencio Kate MDADM AUTHOR: Gaudencio Kate MD * ALL edits or amendments must be made on the electronic/computer document * Operative ReportStart date: 04/25/22Start time: 0000Pre-procedure diagnosis:L HIP OAPost-procedure diagnosis:SAMEProcedures performed:L AHATechnique/Procedure:Anterior Approach Total Hip Replacement OPERATIVE PROCEDURE IN DETAIL The patient was identified in the holding area, and all questions and concerns were answered. The patient verbally confirmed the site and side of the surgery and marking of the site was done. The patient was brought to the operating room and after adequate anesthesia was obtained was placed supine on a well-padded [place] table. The leg was then preppedin routine sterile manner, following which it was draped including the perineum and operative areas with adhesive Ioban Drape. A surgical time-out was performedto identify correct patient, surgical site and surgery. We verified patient had received preoperative antibiotics. An incision was started slightly lateral to the anterior superior iliac spine and extended distally to make it centered over the greater trochanter. The incision was carried deep to the fascia. The fascia was incised, and the interval between the sartorius and tensor fascia elina was developed. The leash of vessel across the interval was cauterized. The hip capsule was identified andretractors were placed laterally and medially around the femoral neck. The capsule was incised in an H fashion with one limb along the neck and the other along the acetabular labrum. The capsule elevated from the intertrochanteric line distally and proximally. The neck is cut in situ according to pre-operativetemplating at two sites, using intraoperative fluoroscopy to confirm the level of resection. The fragment of femoral neck is removed, and the head is removed using a corkscrew. Our attention was then directed to the acetabulum. Anterior and posterior retractors were placed around the acetabulum. Remnants of labrum were excised anteriorly and posteriorly using a combination of electrocautery and sharp dissection. The acetabulum was reamed sequentially with increasing size hemispherical reamers using an offset reamer handle under fluoroscopic guidance until bleeding cancellous bone was uncovered. An acetabular component was impacted with offset inserters under fluoroscopic guidance to assure an adequateamount of inclination and anteversion. The poly liner was placed and fully seated with an impactor. Our attention was then directed to the femur. A trochanteric hook was placed lateral, around the greater trochanter. The femur was then was mobilized by external rotation, hyperextension and adduction of the leg. Dissection of the lateral capsule from the lateral neck and piriformis fossa allowed elevation of the femur which was held in place with the trochanteric hook. Preparation of thefemur was started with a box osteotome, followed by a canal finder and then sequential broaching of the femoral canal using an offset broach handle until anappropriate fit and stability was encountered. A trial head and neck were assembled onto the broach and the hip was reduced. An intraoperative low AP pelvis x-ray was used to confirm the position and orientation of acetabular components, the fit and fill of the femoral component, and the leg length at trial reduction. The x-ray was used to make any adjustments needed. The trial components were then removed and the final components inserted. The tissues werethen lavaged, and the hip was relocated and stability was checked. Closure was completed with a heavy absorbable suture to the capsule, followed by a running absorbable suture to the fascia. Subcutaneous absorbable suture and skin subcuticular stitches were then placed. Dermabond mesh applied. The patient was woken up from anesthesia and transferred to the recovery in stable condition. INDICATIONS FOR MONOMER RECOVERY SUPERVISOR The presence of a skilled surgical coordinator was medically necessary to aid for the entire procedure. Their responsibilities include patient positioning, retraction of soft tissues for wide exposure so that the surgeon can use both hands to perform the surgery, as well as stabilizing the limb for surgical instrumentation throughout the case. Retraction for exposure/visualization, as well as stabilization of the extremity is vital to the procedure and not possible without an assistant maintenance manager. In addition having an assistant maintenance manager shortens operative times which decreases expenses and improves outcomes. I am not part ofany residency or fellowship training programs and therefore require the help of the assistant maintenance manager listed above for this surgery. IMPLANTS Depuy 56 mm [place] cup, 40+4 liner, 4std trilock, 40+ 1.5mm CERAMIC head Primary Surgeon: Raulistant(s): HENNA PACAnesthesia: regional anesthesia, spinal anestheticOperative findings:OAComplications: noneEstimated blood loss in ml's: 250Specimens removed/altered: noneImplant(s): DEPUY at [address] [facility] #:[id number] OF REPORT OPOperative [id number]:00Y.[id number] ilable for patient [id number]:56:01 HCATO 2022-02-12 13:38:00 [id number]:[id number]:0 [id number] [address] PATIENT NAME: SHYAM MEAD ADMIT DATE: ACCOUNT NO: [id number] ROOM NO: AGE: 61 REPORT TYPE: ELECTROCARDIOGRAM SEX: M ADMITTING PHYSICIAN: ATTENDING PHYSICIAN:Gaudencio Kate MD Order:[id number] Reason : PRE-OP CLEARANCE >50 Test Date/Time Stamp:FriFeb 12 2022 13:38:35Blood Pressure : / mmHGVent. Rate : 057 BPM Atrial Rate : 057 BPM P-R Int : 162 ms QRS Dur : 078 ms QT Int : 406 ms P-R-T Axes : 026 -18 010 degrees QTc Int : 395 ms Sinus bradycardiaOtherwise normal ECGNo previous ECGs availableConfirmed by DAYDAY URRUTIA MD ([id number]) on 02/14/2022 7:39:40 PM Referred By: Gaudencio Kate Confirmed by:DAYDAY URRUTIA MD PATIENT NAME: SHYAM MEAD .[id number] AVAvailable for patient [id number]:40:00 HCATO
[2023-12-30] MEDS ORDERED: LIDOCAINE 1% 20 ML MDV ONE (20:07)
[2023-12-30] MEDS ORDERED: DOXYCYCLINE 100 MG CAP PO ONE (20:07)
[2023-12-30] MEDS ORDERED: TDAP (DIPHTH,PERTUSS(ACELL),TET VAC) 0.5 ML VIAL IMVAC ONE (20:07)
--- NOTE | 2023-12-30 20:29 | ER ---
Nurse's Notes [facility] Name: Heron Mead Age: 63 yrs Sex: Male : 1960 Arrival Date: 12/30/2023 Time: 19:52 Bed 17 Private MD: Diagnosis: Right index finger fishhook injury, Encounter for Right index finger fishhook removal Presentation: 12/29 19:56 Coronavirus screen: At this time, the client does not indicate any symptoms associated [facility] with coronavirus-19. Ebola Screen: No symptoms or risks identified at this time. Initial Sepsis Screen: Does the patient meet any 2 criteria? No. Patient's initial sepsis screen is negative. Does the patient have a suspected source of infection? No. Patient's initial sepsis screen is negative. Risk Assessment: Do you want to hurt yourself or someone else? Patient reports no desire to harm self or others. Onset of symptoms was December 30, 2023. 19:56 Method Of Arrival: Ambulatory 9 20:01 Chief complaint: Patient states: pt got a fish hook to his right index finger. as6 20:01 Acuity: BEKA 4 as6 Historical: - Allergies: 20:01 No Known Allergies; as6 - PMHx: 20:01 None; as6 - PSHx: 20:01 hip; as6 - Immunization history:: Adult Immunizations up to date, Last tetanus immunization: unknown. - Infectious Disease History:: Denies. - Family history:: not pertinent. - Social history:: Smoking status: Patient denies any tobacco usage or history of. Screenin:55 [facility] ED Fall Risk Assessment (Adult) History of falling in the last 3 months, 9 including since admission No falls in past 3 months (0 pts) Confusion or Disorientation No (0 pts) Intoxicated or Sedated No (0 pts) Impaired Gait No (0 pts) Mobility Assist Device Used No (0 pt) Altered Elimination No (0 pt) Score/Fall Risk Level 0 - 2 = Low Risk Oriented to surroundings, Maintained a safe environment, Educated pt \T\ family on fall prevention, incl call for assistance when getting out of bed. Abuse screen: Denies threats or abuse. Nutritional screening: No deficits noted. Tuberculosis screening: No symptoms or risk factors identified. Assessment: 19:58 General: Appears in no apparent distress. Behavior is calm, cooperative. Pain: mb9 Complains of pain in right hand. Neuro: Jarrell Agitation-Sedation Scale (RASS): 0 - Alert and Calm Level of Consciousness is awake, alert, obeys commands, Oriented to person, place, time, situation, Appropriate for age. Cardiovascular: Patient's skin is warm and dry. Respiratory: Airway is patent Respiratory effort is even, unlabored, Respiratory pattern is regular, symmetrical. GI: No signs and/or symptoms were reported involving the gastrointestinal system. : No signs and/or symptoms were reported regarding the genitourinary system. EENT: No signs and/or symptoms were reported regarding the EENT system. Derm: Skin is pink, warm \T\ dry. Musculoskeletal: Range of motion: intact in all extremities. Injury Description: Foreign body is located right pointer finger is fish hook. 20:27 Reassessment: Patient appears in no apparent distress at this time. No changes from mb9 previously documented assessment. Patient and/or family updated on plan of care and expected duration. Pain level reassessed. Patient is alert, oriented x 3, equal unlabored respirations, skin warm/dry/pink. Vital Signs: 20:00 BP 151 / 99; Pulse 67; Resp 18 S; Temp 97.5(TE); Pulse Ox 99% on R/A; Weight 84.82 kg as6 (R); Height 5 ft. 10 in. (R); Pain 1/10; 20:23 BP 132 / 72; Pulse 68; Resp 16; Pulse Ox 100% on R/A; mb9 20:00 Body Mass Index 26.83 (84.82 kg, 177.8 cm) as6 20:00 Pain Scale: Adult as6 [place] Coma Score: 20:29 Eye Response: spontaneous(4). Motor Response: obeys commands(6). Verbal Response: sp4 oriented(5). Total: 15. ED Course: 19:52 Patient arrived in ED. jj6 19:55 Shrtui Calle, RITESH is Primary Nurse. mb9 19:55 Arm band placed on. mb9 19:55 Placed in gown. Bed in low position. Call light in reach. Side rails up X 1. Provided mb9 Education on: press call light if needing anything. Client placed on continuous cardiac and pulse oximetry monitoring. NIBP monitoring applied. 20:01 Triage completed. as6 20:02 Rg Bailey MD is Attending Physician. sp4 20:03 Wound care: located on right hand was cleaned with soap and water, soaked in Betadine mb9 solution, Patient tolerated well. 20:04 Patient did not have IV access during this emergency room visit. mb9 20:19 removal of fish hook. mb9 Administered Medications: 20:11 Drug: Lidocaine Infiltration (1 %) 20 ml 20 ml Infiltration once; to bedside Volume: 20 mb9 ml; Route: Infiltration; 20:23 Follow up: Response: No adverse reaction mb9 20:11 Drug: Doxycycline PO 100 mg PO once Route: PO; mb9 20:22 Follow up: Response: No adverse reaction mb9 20:11 Drug: Boostrix Tdap IM 0.5 ml IM once; as a single dose {Note: LK59T 09/27/25 mb9 My-Apps.} Route: IM; Site: left deltoid; 20:23 Follow up: Response: No adverse reaction mb9 Medication: 19:56 VIS not applicable for this client. mb9 Outcome: 20:28 Discharge ordered by . sp4 20:33 Discharged to home ambulatory, mb9 20:33 Condition: stable 20:33 Instructed on discharge instructions, follow up and referral plans. 20:33 Discharge instructions given to patient, Demonstrated understanding of instructions, follow-up care, medications, Prescriptions given X 1, 20:34 Patient left the ED. mb9 Signatures: Stella Abraham Ashby, RN RN as6 Shruti Calle RN RN mb9 Rg Baiely MD MD sp4 Corrections: (The following items were deleted from the chart) 20:01 19:59 Immunization history: Adult Immunizations up to date, mb9 as6
--- NOTE | 2023-12-30 20:29 | EDPHYS ---
Physician Documentation [facility] Name: Heron Mead Age: 63 yrs Sex: Male : 1960 Arrival Date: 12/30/2023 Time: 19:52 Bed 17 Private MD: ED Physician Rg Bailey HPI: 12/29 20:02 This 63 yrs old Male presents to ER via Ambulatory with complaints of FISH sp4 HOOK LODGED IN FINGER. 20:29 63-year-old male presents with fishhook in the right index finger distal aspect. This sp4 happened just prior to arrival. Patient states he was fishing and a leg fishhook was dirty. . Historical: - Allergies: 20:01 No Known Allergies; as6 - PMHx: 20:01 None; as6 - PSHx: 20:01 hip; as6 - Immunization history:: Adult Immunizations up to date, Last tetanus immunization: unknown. - Infectious Disease History:: Denies. - Family history:: not pertinent. - Social history:: Smoking status: Patient denies any tobacco usage or history of. ROS: 20:29 Constitutional: Negative for fever, chills, and weight loss, positive right index sp4 finger fishhook 20:29 All other systems are negative, Exam: 20:29 Constitutional: This is a well developed, well nourished patient who is awake, alert, sp4 and in no acute distress. Head/Face: Normocephalic, atraumatic. Eyes: Pupils equal round and reactive to light, extra-ocular motions intact. Lids and lashes normal. Conjunctiva and sclera are not injected. Cornea within normal limits. Periorbital areas with no swelling, redness, or edema. ENT: Nares patent. No nasal discharge, no septal abnormalities noted. Tympanic membranes are normal and external auditory canals are clear. Oropharynx with no redness, swelling, or masses, exudates, or evidence of obstruction, uvula midline. Mucous membranes moist. Neck: Trachea midline, no thyromegaly or masses palpated, and no cervical lymphadenopathy. Supple, full range of motion without nuchal rigidity, or vertebral point tenderness. Chest/axilla: Normal chest wall appearance and motion. Nontender with no deformity. No lesions are appreciated. Cardiovascular: Regular rate and rhythm with a normal S1 and S2. No gallops, murmurs, or rubs. Normal PMI, no JVD. No pulse deficits. Respiratory: Lungs have equal breath sounds bilaterally, clear to auscultation and percussion. No rales, rhonchi or wheezes noted. No increased work of breathing, no retractions or nasal flaring. Abdomen/GI: Soft, with normal bowel sounds. No distension or tympany. No guarding or rebound. No evidence of tenderness throughout. Back: No spinal tenderness. No costovertebral tenderness. Skin: Warm, dry with normal turgor. Normal color with no rashes, no lesions, and no evidence of cellulitis. MS/ Extremity: Pulses equal, no cyanosis. Neurovascular intact. Full, normal range of motion. Right index finger fishhook embedded in the distal phalanx Neuro: Awake and alert, GCS 15, oriented to person, place, time, and situation. Cranial nerves II-XII grossly intact. Motor strength 5/5 in all extremities. Sensory grossly intact. Psych: Awake, alert, with orientation to person, place and time. Behavior, mood, and affect are within normal limits Vital Signs: 20:00 BP 151 / 99; Pulse 67; Resp 18 S; Temp 97.5(TE); Pulse Ox 99% on R/A; Weight 84.82 kg as6 (R); Height 5 ft. 10 in. (R); Pain 1/10; 20:23 BP 132 / 72; Pulse 68; Resp 16; Pulse Ox 100% on R/A; mb9 20:00 Body Mass Index 26.83 (84.82 kg, 177.8 cm) as6 20:00 Pain Scale: Adult as6 [place] Coma Score: 20:29 Eye Response: spontaneous(4). Motor Response: obeys commands(6). Verbal Response: sp4 oriented(5). Total: 15. Procedures: 20:29 Foreign Body Removal: a fishhook, from the right palmar aspect of distal phalanx of sp4 right index finger, by incising to remove, tweezers, Pliers used to push fishhook through and then to remove entirely . Dressinx4s were used to dress the wound, nasim was used to dress the wound, The patient tolerated the removal well, Patient was covered with p.o. doxycycline for the next 10 days. Tetanus shot was updated. MDM: 20:27 Patient medically screened. sp4 20:29 Differential Diagnosis Foreign body right index finger. Data reviewed: vital signs, sp4 nurses notes. ED course: [place] was removed without complications. Patient advised dressing changes twice a day and doxycycline twice a day for 10 days.. 12/29 20:06 Order name: Dressing - Wound; Complete Time: 20:11 sp4 12/29 20:06 Order name: Gloves, Sterile; Complete Time: 20:11 sp4 12/29 20:06 Order name: Setup Suture Tray; Complete Time: 20:11 sp4 Administered Medications: 20:11 Drug: Lidocaine Infiltration (1 %) 20 ml 20 ml Infiltration once; to bedside Volume: 20 mb9 ml; Route: Infiltration; 20:23 Follow up: Response: No adverse reaction mb9 20:11 Drug: Doxycycline PO 100 mg PO once Route: PO; mb9 20:22 Follow up: Response: No adverse reaction mb9 20:11 Drug: Boostrix Tdap IM 0.5 ml IM once; as a single dose {Note: LK59T 09/27/25 mb9 [employer].} Route: IM; Site: left deltoid; 20:23 Follow up: Response: No adverse reaction mb9 Disposition Summary: 12/30/23 20:28 Discharge Ordered Problem: new sp4 Symptoms: have improved sp4 Condition: Stable sp4 Diagnosis - Right index finger fishhook injury, Encounter for Right index finger fishhook sp4 removal Followup: sp4 - With: Private Physician - When: 7 - 10 days - Reason: Recheck today's complaints Discharge Instructions: - Discharge Summary Sheet sp4 - [place] Removal sp4 Forms: - Patient Portal Instructions sp4 Prescriptions: - Doxycycline Monohydrate 100 mg Oral Tablet - take 1 tablet ORAL route every 12 hours for 10 days; 20 tablet; Refills: 0, sp4 Product Selection Permitted Signatures: Chris Go RN RN as6 Shruti Calle RN RN mb9 Rg Bailey MD MD sp4 Corrections: (The following items were deleted from the chart) 20:01 19:59 Immunization history: Adult Immunizations up to date, jocelyn as6
[2023-12-31 05:49] VITALS: BP 132/72; TEMP 97.5; O2SAT 100
== END 2023-12-30 20:34 | disposition home or self-care (01) ==
LOC: ER 19:52
DX: S61.240A Puncture wound with foreign body of right index finger without damage to nail, initial encounter (principal)
CPT/HCPCS: J2001